=== PATIENT | male | born 1930 | race Caucasian/White ===

== ENCOUNTER 2018-05-03 21:31 | Emergency (ER) | payer OTHER ==
[2018-05-03 21:53] VITALS: PULSE 79; TEMP 98.5; BMI 31.8
--- NOTE | 2018-05-03 21:56 | PDOC ---
History of Present Illness - History of Present Illness Initial Comments: 05/03/18 21:58 HPI: The patient is a 87 year old male, with a significant past medical history of multiple prostate surgeries, who presents to the emergency department with, urinary retention. As per patient, he has not been able to micturate since this morning, prompting his visit to the ER [facility]. Patient endorses one year of intermittent hematuria. He was seen by his urologist 2 days ago where he had a bladder ultrasound and urine testing done. He denies any recent fevers, chills, headache or dizziness. He denies any recent nausea, vomit, diarrhea or constipation. He denies any recent chest pain or shortness of breath. PAST MEDICAL HISTORY: no significant history PAST SURGICAL HISTORY: no significant history FAMILY HISTORY: no pertinent history SOCIAL HISTORY: Pt lives with family and is employed. MEDICATIONS: reviewed ALLERGIES: As per nursing notes ROS: General: No fevers or chills, no weakness, no weight loss HEENT: No change in vision. No sore throat,. No ear pain CardioVascular: No chest pain or shortness of breath Respiratory:No cough, or wheezing. Gastrointestinal: no nausea, vomiting, diarrhea or constipation, No rectal bleeding +Genitourinary: Retention. Hematuria. No dysuria or frequency Musculoskeletal: No joint or muscle pain or swelling Neurologic: No headache, vertigo, dizziness or loss of consciousness Psychiatric: nor depression Skin: No rashes or easy bruising Endocrine: no increased thirst or abnormal weight change Allergic: no skin or latex allergy All other systems reviewed and normal Physical Exam: GENERAL: The patient is awake, alert, and fully oriented, in no acute distress. HEAD: Normal with no signs of trauma. EYES: Pupils equal, round and reactive to light, extraocular movements intact, sclera anicteric, conjunctiva clear. EXTREMITIES: Normal range of motion, no edema. BACK: No CVA tenderness. ABDOMINAL: No tenderness or distention. NEUROLOGICAL: Normal speech, normal gait. PSYCH: Normal mood, normal affect. SKIN: Warm, Dry, normal turgor, no rashes or lesions noted. <Naman Yanes - Last Filed: 05/03/18 21:58> - General History Source: Patient Exam Limitations: No Limitations - History of Present Illness Initial Comments: 05/03/18 21:55 A portion of this note was documented by scribe services under my direction. I have reviewed the details of the note, within reason, and agree with the documentation. The case summary and management plan written by me. Assessment and plan: This is an 87-year-old male who comes in complaining of unable to urinate since this morning. Almonte catheter was placed with grossly bloody urine however urine had no problems draining once Almonte was placed. Patient is on Plavix and said he has had some hematuria intermittently over the last year since he had some prostate gait scraping procedure done. Patient otherwise denied any complaints. Patient last saw his urologist 2 days ago where he has urine was checked and he was told it had some blood in it but otherwise no infection. 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) Cholecystectomy: No Lung Surgery: No Neurologic Surgery: No Orthopedic Surgery: Yes - Suicide/Smoking/Psychosocial Hx Smoking History: Never smoked Have you smoked in the past 12 months: No Hx Alcohol Use: No Drug/Substance Use Hx: No Substance Use Type: None Hx Substance Use Treatment: No <Dina Brantley I - Last Filed: 05/03/18 22:41> - Past Medical History Allergies/Adverse Reactions: Allergies Allergy/AdvReac Type Severity Reaction Status Date / Time No Known Allergies Allergy Verified 03/11/13 14:22 Home Medications: Ambulatory Orders Clopidogrel Bisulfate [Plavix] 75 mg PO DAILY 03/11/13 Ranolazine [Ranexa] 500 mg PO DAILY 03/11/13 Rosuvastatin Calcium [Crestor] 5 mg PO DAILY 03/11/13 Ciprofloxacin HCl [Cipro] 500 mg PO BID #14 tablet 05/03/18 Metoprolol Succinate 25 mg PO DAILY 05/03/18 *Physical Exam - Vital Signs Last Vital Signs Temp Pulse Resp BP Pulse Ox 98.5 F 79 20 150/78 99 05/03/18 21:38 05/03/18 21:38 05/03/18 21:38 05/03/18 21:56 05/03/18 21:38 <Naman Yanes - Last Filed: 05/03/18 21:58> - Vital Signs Last Vital Signs Temp Pulse Resp BP Pulse Ox 98.5 F 79 20 225/138 H 99 05/03/18 21:38 05/03/18 21:38 05/03/18 21:38 05/03/18 21:38 05/03/18 21:38 <Dina Brantley I - Last Filed: 05/03/18 22:41> *DC/Admit/Observation/Transfer - Attestations Scribe Attestion: 05/03/18 21:59 Documentation prepared by Naman Yanes, acting as internist medical doctor md for Dina Brantley MD. <Naman Yanes - Last Filed: 05/03/18 21:58> - Discharge Dispostion Decision to Admit order: No <Dina Brantley I - Last Filed: 05/03/18 22:41> Diagnosis at time of Disposition: Hematuria, gross, Urinary retention - Discharge Dispostion Disposition: HOME Condition at time of disposition: Stable - Referrals Referrals: Humble Peres MD [Primary Care Provider] - - Patient Instructions Additional Instructions: The urine was positive for an infection so I'm starting him on an antibiotic. Take the antibiotic twice a day for 7 days. When you see your urologist that him know you were started on an antibiotic. Wear the leg bag and leave the catheter in until you see your urologist. Empty the leg bag as needed, Return to the emergency department immediately with ANY new, persistent or worsening symptoms. Continue any medications as previously prescribed by your physician. You should follow up with your primary doctor as soon as possible regarding today's emergency department visit. . Please make sure your doctor reviews the results of your emergency evaluation. Thank you for coming to the Emergency Department today for your care. It was a pleasure to see you today. Please note that your evaluation is INCOMPLETE until you follow-up with your doctor. - Post Discharge Activity
[2018-05-03 21:57] VITALS: BP 150/78
[2018-05-03 22:35] LABS: URINE BILIRUBIN NEGATIVE (NEGATIVE); URINE GLUCOSE (UA) NEGATIVE (NEGATIVE); URINE KETONE NEGATIVE (NEGATIVE)
[2018-05-03 22:36] LABS: URINE LEUK ESTERASE 2+ (NEGATIVE); URINE NITRITE POSITIVE (NEGATIVE); URINE PROTEIN 2+ (NEGATIVE); URINE UROBILINOGEN 4 (0.2-1.0)
[2018-05-03 22:39] LABS: AMORP URATES 1+ /hpf (NONE SEEN); EPI CELLS FEW /HPF; URINE RBC >100 /hpf (0-3)
[2018-05-03] MEDS ORDERED: CIPROFLOXACIN 500 MG TABLET (RESTRICTED TO ID) PO ONE (22:39)
[2018-05-03 22:40] LABS: URINE BACTERIA 1+ /hpf (NEGATIVE)
[2018-05-03] MEDS ORDERED: CIPROFLOXACIN 250 MG TABLET (RESTRICTED TO ID) PO ONE (22:42)
[2018-05-06 09:35] LABS: URINE APPEARANCE Not; URINE COLOR Not
== END 2018-05-03 22:47 | disposition home or self-care (01) ==
LOC: FER 21:31
DX: R31.9 Hematuria, unspecified (principal); R33.9 Retention of urine, unspecified; I10 Essential (primary) hypertension; E78.00 Pure hypercholesterolemia, unspecified; Z85.46 Personal history of malignant neoplasm of prostate
CPT/HCPCS: 81003; 81015; 87086; 87186; 99283-25

== ENCOUNTER 2020-03-30 05:14 | Emergency (ER) | payer OTHER ==
--- NOTE | 2020-03-30 05:19 | PDOC ---
History of Present Illness - General Chief Complaint: Urinary Problem Stated Complaint: " I CANT PEE" Time Seen by Provider: 03/30/20 05:18 History Source: Patient Exam Limitations: No Limitations - History of Present Illness Initial Comments: 03/30/20 05:20 This is an 89-year-old male who comes in complaining that he cannot pee. Said that at about midnight he started developing painful urination and was able to pee at 3 AM but had a Cipro leftover from a earlier urinary tract infection so took a Cipro. Patient denies any fever, chills, nausea vomiting or diarrhea. Patient has history significant for prostate cancer and has a seed implants. Allergies: as per nursing notes Past Medical History: none Social history: Lives with family. No smoking. No alcohol. No illicit drugs. Surgical history: None General: No fevers or chills, no weakness, no weight loss HEENT: No change in vision. No sore throat,. No ear pain CardioVascular: no chest discomfort. No shortness of breath Respiratory:No cough, or wheezing. Gastrointestinal: no nausea, vomiting, diarrhea or constipation, No rectal bleeding Genitourinary: No dysuria, hematuria, or frequency Musculoskeletal: No joint or muscle pain or swelling Neurologic: No headache, vertigo, dizziness or loss of consciousness Psychiatric: nor depression Skin: No rashes or easy bruising Endocrine: no increased thirst or abnormal weight change Allergic: no skin or latex allergy All other systems reviewed and normal Exam: General: Well-nourished well-developed individual, no acute distress HEENT: Throat: Normal, tonsils normal, no erythema or exudate Neck: Supple, no meningeal signs, no lymphadenopathy Eyes::Pupils equal reactive and round, extraocular motion intact Abdomen: Soft, nondistended, normal bowel sounds, there is no tenderness on palpation diffusely Extremities: Warm, dry, no cyanosis, clubbing, or edema Skin: No rashes Neuro: Alert and oriented x3, CN II - XII intact, nonfocal exam with normal strength, normal sensation, normal reflexes, normal gait, Psych: Normal mood and affect Plan: This is an 89-year-old male who comes in complaining that he cannot pee. Bladder scan was done that only shows 250 cc ER. Patient was straight cathed and a urine was sent for urinalysis and culture. 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) Cardiac Disorders: No CVA: No COPD: No CHF: No Dementia: No Diabetes: No GI Disorders: No Disorders: No HTN: Yes Hypercholesterolemia: Yes Liver Disease: No Seizures: No Thyroid Disease: No - Surgical History Abdominal Surgery: No Appendectomy: Yes Cardiac Surgery: Yes (QUADRUPALE BYPASS, 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) Cholecystectomy: No Lung Surgery: No Neurologic Surgery: No Orthopedic Surgery: Yes - Psycho-Social/Smoking History Smoking History: Never smoked Have you smoked in the past 12 months: No Discharge - Discharge Information Problems reviewed: Yes Clinical Impression/Diagnosis: Dysuria UTI (urinary tract infection) Qualifiers: Urinary tract infection type: acute cystitis Hematuria presence: with hematuria Qualified Code(s): N30.01 - Acute cystitis with hematuria Condition: Stable Disposition: HOME - Additional Discharge Information Prescriptions: Sulfamethoxazole/Trimethoprim [Bactrim Ds Tablet] 1 each PO BID #14 tablet - Follow up/Referral Referrals: Abiel Tran MD [Staff Physician] - Santi Reaves MD., MD [Staff Physician] - Amarjit Huerta MD [Staff Physician] - Humble Peres MD [Primary Care Provider] - - Patient Discharge Instructions Patient Printed Discharge Instructions: DI for Urinary Tract Infection (UTI), DI for Dysuria -- Adult Additional Instructions: 1) Please follow-up with your primary care doctor in the next 1-2 days. Please call tomorrow for for any urgent issues. follow up with urologist, referrals given to follow up on your urinary symptoms. 2) You were given a copy of the tests performed today. Please bring the results with you and review them with your primary care doctor. You have a urinary tract infection that will be treated with oral antibiotics x 1 week follow up on urine culture. 3) If you have any worsening of symptoms or any other concerns please return to the ED immediately. Return if worsening symptoms including fevers, headache, vomiting, visual or hearing disturbances, abdominal pain, chest pain, shortness of breath, syncope, dehydration, inability to take things by mouth/vomiting, altered mental status, bloody urine or bowel movements or worsening concerning symptoms. 4) Please continue taking your home medications as directed. take bactrim twice a day x 1 week, this will treat the infection. take with food. side effects may include dizziness, nausea, vomiting, diarrhea and abdominal pain. Stay well hydrated and rest adequately. Make an appointment. If you cannot follow-up with your primary care doctor please return to the ED - Post Discharge Activity
--- OUTSIDE RECORDS SUMMARY | 2020-03-30 05:20 | XMS ---
:1930 Author Organization [facility] Support Name Relationship Address Phone RE Unavailable Unavailable Unavailable LUI [address] [place] [address] [address] SON [address] [place] [address] Re-disclosure Warning The records that you are about to access may contain information from federally- assisted alcohol or drug abuse programs. If such information is present, then the following federally mandated warning applies: This information has been disclosed to you from records protected by federal confidentiality rules (42 CFR part 2). The federal rules prohibit you from making any further disclosure of this information unless further disclosure is expressly permitted by the written consent of the person to whom it pertains or as otherwise permitted by 42 CFR part 2. A general authorization for the release of medical or other information is NOT sufficient for this purpose. The Federal rules restrict any use of the information to criminally investigate or prosecute any alcohol or drug abuse patient.The records that you are about to access may contain highly sensitive health information, the redisclosure of which is protected by Article 27-F of the [facility] Public Health law. If you continue you may haveaccess to information: Regarding HIV / AIDS; Provided by facilities licensed or operated by the [facility] Office of Mental Health; or Provided by the [facility] Office for People With Developmental Disabilities. If such information is present, then the following [facility] mandated warning applies: This information has been disclosed to you from confidential records which are protected by state law. State law prohibits you from making any further disclosure of this information without the specific written consent of the person to whom it pertains, or as otherwise permitted by law. Any unauthorized further disclosure in violation of state law may result in a fine or nursing home sentence or both. A general authorization for the release of medical or other information is NOT sufficient authorization for further disclosure. Insurance Providers Payer name Policy type Policy ID Covered Covered republican's Policy P zane / Coverage republican ID relationship to [place] [employer] type [place] [employer] [id number] SP [id number] MEDICARE Results ID Date Data Source [id number] 10/29/2019 12:00:00 AM EDT [facility] Name Value Range Interpretation Code Description Data Caterina rce(s) Supporting Document(s ) 2019-nCoV [facility] RNA XXX ERIKA+probe- Imp [facility] and reported by [employer]. ID Date Data Source [id number] 12/17/2017 11:34:[address] [facility] [address] Name Value Range Interpretation Code Description Data Caterina rce(s) Supporting Document(s ) UNK <item><content [facility] styleCode="Bold"> Medical [facility] er Culture Report </content>
<t able><tbody><tr>< td>Specimen Number:</td><td>[id number]</td></tr ><tr><td>Sample Collection Date/Time: </td><td> 8 11:34 AM</td></tr><tr>< td>Specimen Source:</td><td>U RINE</td></tr><tr ><td>Urine Culture:</td><td> Collection Plate Date: 12/17/2017 15:03 </td></tr><tr><td >Culture Status:</td><td>F inal </td></tr><tr><td >Culture Report:</td><td>C ulture in progress </td></tr><tr><td >Emeigh Count Urine:</td><td>60 ,000 CFU/ML </td></tr><tr><td >Preliminary 1:</td><td>GRAM NEGATIVE BACILLI </td></tr><tr><td >Organism 1:</td><td>ESCHER ICHIA COLI </td></tr></tbody ></table>
<ta ble border="2"><tbody ><tr><td></td><td >1</td></tr><tr>< td>Comment</td><t d></td></tr><tr>< td>Result Value</td><td>ESC HERICHIA COLI </td></tr><tr><td >Result Status</td><td>Fi nal Result</td></tr>< tr><td>AMPICILLIN </td><td>>16 R</td></tr><tr><t d>AMPICILLIN SULBACTAM</td><td >>16/8 R</td></tr><tr><t d>AZTREONAM</td>< td>>16 ESBL</td></tr><tr ><td>CEFEPIME</td ><td>>16 R</td></tr><tr><t d>CEFOTAXIME</td> <td>>32 ESBL</td></tr><tr ><td>CEFOTETAN</t d><td><= 16 S</td></tr><tr><t d>CEFTAZIDIME</td ><td>>16 ESBL</td></tr><tr ><td>CEFTRIAXONE< /td><td>>32 ESBL</td></tr><tr ><td>CEFUROXIME</ td><td>>16 R</td></tr><tr><t d>CIPROFLOXACIN</ td><td>> 2 R</td></tr><tr><t d>ERTAPENEM</td>< td><=1 S</td></tr><tr><t d>GENTAMICIN</td> <td><= 4 S</td></tr><tr><t d>IMIPENEM</td><t d><= 1 S</td></tr><tr><t d>LEVOFLOXACIN</t d><td>> 4 R</td></tr><tr><t d>MEROPENEM</td>< td><= 1 S</td></tr><tr><t d>NITROFURANTOIN< /td><td><= 32 S</td></tr><tr><t d>PIPERACILLIN/TA ZOBACTAM</td><td> <= 16 S</td></tr><tr><t d>TETRACYCLINE</t d><td>> 8 R</td></tr><tr><t d>TIGECYCLINE</td ><td><= 2 S</td></tr><tr><t d>TRIMETHOPRIM/ARAYA LFAMETHOXAZOLE</t d><td>>2/38 R</td></tr></tbod y></table></item> UNK <item><content [facility] styleCode="Bold"> Medical [facility] er Culture Status </content>
<t able><tbody><tr>< td>Specimen Number:</td><td>[id number]</td></tr ><tr><td>Sample Collection Date/Time: </td><td> 8 11:34 AM</td></tr><tr>< td>Specimen Source:</td><td>U RINE</td></tr><tr ><td>Emeigh Count Urine:</td><td>60 ,000 CFU/ML </td></tr><tr><td >Preliminary 1:</td><td>GRAM NEGATIVE BACILLI </td></tr><tr><td >Culture Status:</td><td>F inal </td></tr><tr><td >Culture Report:</td><td>C ulture in progress </td></tr><tr><td >Urine Culture:</td><td> Collection Plate Date: 12/17/2017 15:03 </td></tr><tr><td >Organism 1:</td><td>ESCHER ICHIA COLI </td></tr></tbody ></table>
<ta ble border="2"><tbody ><tr><td></td><td >1</td></tr><tr>< td>Comment</td><t d></td></tr><tr>< td>Result Value</td><td>ESC HERICHIA COLI </td></tr><tr><td >Result Status</td><td>Fi nal Result</td></tr>< tr><td>AMPICILLIN </td><td>>16 R</td></tr><tr><t d>AMPICILLIN SULBACTAM</td><td >>16/8 R</td></tr><tr><t d>AZTREONAM</td>< td>>16 ESBL</td></tr><tr ><td>CEFEPIME</td ><td>>16 R</td></tr><tr><t d>CEFOTAXIME</td> <td>>32 ESBL</td></tr><tr ><td>CEFOTETAN</t d><td><= 16 S</td></tr><tr><t d>CEFTAZIDIME</td ><td>>16 ESBL</td></tr><tr ><td>CEFTRIAXONE< /td><td>>32 ESBL</td></tr><tr ><td>CEFUROXIME</ td><td>>16 R</td></tr><tr><t d>CIPROFLOXACIN</ td><td>> 2 R</td></tr><tr><t d>ERTAPENEM</td>< td><=1 S</td></tr><tr><t d>GENTAMICIN</td> <td><= 4 S</td></tr><tr><t d>IMIPENEM</td><t d><= 1 S</td></tr><tr><t d>LEVOFLOXACIN</t d><td>> 4 R</td></tr><tr><t d>MEROPENEM</td>< td><= 1 S</td></tr><tr><t d>NITROFURANTOIN< /td><td><= 32 S</td></tr><tr><t d>PIPERACILLIN/TA ZOBACTAM</td><td> <= 16 S</td></tr><tr><t d>TETRACYCLINE</t d><td>> 8 R</td></tr><tr><t d>TIGECYCLINE</td ><td><= 2 S</td></tr><tr><t d>TRIMETHOPRIM/ARAYA LFAMETHOXAZOLE</t d><td>>2/38 R</td></tr></tbod y></table></item> Procedure Social History Code Duration Value Status Description Data Source(s ) Smoking Unknown if ever completed Unknown if ever Shahbaz Perez smoked [facility]
[2020-03-30 05:23] VITALS: BMI 27.7
[2020-03-30 05:51] VITALS: PULSE 54; TEMP 98.8
--- NOTE | 2020-03-30 07:23 | PDOC ---
*Physical Exam - Vital Signs Last Vital Signs Temp Pulse Resp BP Pulse Ox 98.8 F 54 L 18 190/71 H 95 03/30/20 05:49 03/30/20 05:49 03/30/20 05:49 03/30/20 05:49 03/30/20 05:49 Medical Decision Making - Medical Decision Making 03/30/20 07:21 Vital Signs Temp Pulse Resp BP Pulse Ox 98.8 F 54 L 18 190/71 H 95 03/30/20 05:49 03/30/20 05:49 03/30/20 05:49 03/30/20 05:49 03/30/20 05:49 pt signed out from Dr Jacob at 7am, pending UA in summary, 89-year-old male who comes in complaining that he cannot pee. Said that at about midnight he started developing painful urination and was able to pee at 3 AM but had a Cipro leftover from a earlier urinary tract infection so took a Cipro. Patient denies any fever, chills, nausea vomiting or diarrhea. Patient has history significant for prostate cancer and has a seed implants. vs with HTN, no fever, nontoxic, no systemic findings no tachy, no respiratory distress usually self catheterizes, PVR ~200cc during visit UA_with rbcs and wbcs, shmuel with infection. will treat with bactrim x 1 week course. follow up culture urology follow up given Pt to be discharged in stable condition. Patient and family made aware of clinical impression, treatment recommendations and disposition plan, return precautions discussed (including but not limited to new or persistent/worsening symptoms, pain, fevers, or signs of infection, chest pain, respiratory distress, inability to tolerate oral intake, dehydration, syncope, or neurologic changes). Follow up with PMD and/or urology specialist as recommended, follow up information provided, take medications as instructed for duration of time. continue with supportive care, avoid triggers and precipitants. All questions answered to patient's satisfaction and expressed understanding and comfort with this. At the time of discharge, the patient is alert, clinically improved, tolerating po and verbalizes understanding of instructions, satisfied with the care received and felt comfortable with the plan. Patient does not suffer from an acute life-threatening medical condition at this time and is safe for outpatient follow-up. 03/30/20 07:22 03/30/20 08:52 03/30/20 09:07 Discharge - Discharge Information Problems reviewed: Yes Clinical Impression/Diagnosis: Dysuria UTI (urinary tract infection) Qualifiers: Urinary tract infection type: acute cystitis Hematuria presence: with hematuria Qualified Code(s): N30.01 - Acute cystitis with hematuria Condition: Stable Disposition: HOME - Admission No - Additional Discharge Information Prescriptions: Sulfamethoxazole/Trimethoprim [Bactrim Ds Tablet] 1 each PO BID #14 tablet - Follow up/Referral Referrals: Humble Peres MD [Primary Care Provider] - Santi Reaves MD., MD [Staff Physician] - Abiel Tran MD [Staff Physician] - Amarjit Huerta MD [Staff Physician] - - Patient Discharge Instructions Patient Printed Discharge Instructions: DI for Dysuria -- Adult, DI for Urinary Tract Infection (UTI) Additional Instructions: 1) Please follow-up with your primary care doctor in the next 1-2 days. Please call tomorrow for for any urgent issues. follow up with urologist, referrals given to follow up on your urinary symptoms. 2) You were given a copy of the tests performed today. Please bring the results with you and review them with your primary care doctor. You have a urinary tract infection that will be treated with oral antibiotics x 1 week follow up on urine culture. 3) If you have any worsening of symptoms or any other concerns please return to the ED immediately. Return if worsening symptoms including fevers, headache, vomiting, visual or hearing disturbances, abdominal pain, chest pain, shortness of breath, syncope, dehydration, inability to take things by mouth/vomiting, altered mental status, bloody urine or bowel movements or worsening concerning symptoms. 4) Please continue taking your home medications as directed. take bactrim twice a day x 1 week, this will treat the infection. take with food. side effects may include dizziness, nausea, vomiting, diarrhea and abdominal pain. Stay well hydrated and rest adequately. Make an appointment. If you cannot follow-up with your primary care doctor please return to the ED - Post Discharge Activity
[2020-03-30 09:05] LABS: EPI CELLS 11 /uL (0-25.1); HYALINE CASTS 0 /uL (0-3.1); URINE APPEARANCE CLEAR; URINE BACTERIA 204 /uL (0-1359); URINE BILIRUBIN NEGATIVE (NEGATIVE); URINE COLOR YELLOW; URINE GLUCOSE (UA) NEGATIVE (NEGATIVE); URINE KETONE NEGATIVE (NEGATIVE); URINE LEUK ESTERASE 1+ (NEGATIVE); URINE NITRITE NEGATIVE (NEGATIVE); URINE PROTEIN NEGATIVE (NEGATIVE); URINE RBC 37 /uL (0-23.9); URINE UROBILINOGEN 0.2 mg/dL (0.2-1.0); URINE WBC 34 /uL (0-25.8)
[2020-03-30 09:28] VITALS: BP 156/77
== END 2020-03-30 09:30 | disposition home or self-care (01) ==
LOC: FER 05:14
DX: R30.0 Dysuria (principal); N30.01 Acute cystitis with hematuria
CPT/HCPCS: 81003; 87086; 87186; 99283-25

== ENCOUNTER 2020-09-24 02:49 | Emergency (ER) | payer OTHER ==
[2020-09-24 02:59] VITALS: BP 138/64; PULSE 63; TEMP 97.6; BMI 33.7
[2020-09-24] MEDS ORDERED: ACETAMINOPHEN 325 MG TABLET (FP) ONE (03:32)
[2020-09-24 04:20] LABS: EPI CELLS 2 /uL (0-25.1); HYALINE CASTS 1 /uL (0-3.1); URINE APPEARANCE CLEAR; URINE BACTERIA >9,000 /uL (0-1359); URINE BILIRUBIN NEGATIVE (NEGATIVE); URINE COLOR YELLOW; URINE GLUCOSE (UA) NEGATIVE (NEGATIVE); URINE KETONE NEGATIVE (NEGATIVE); URINE LEUK ESTERASE 3+ (NEGATIVE); URINE NITRITE NEGATIVE (NEGATIVE); URINE PROTEIN TRACE (NEGATIVE); URINE RBC 70 /uL (0-23.9); URINE UROBILINOGEN 0.2 mg/dL (0.2-1.0); URINE WBC 221 /uL (0-25.8)
[2020-09-24] MEDS ORDERED: CIPROFLOXACIN 500 MG TABLET (RESTRICTED TO ID) PO ONE (04:35)
[2020-09-24] MEDS ORDERED: ACETAMINOPHEN 325 MG TABLET (FP) PO ONE (04:38)
[2020-09-24] MEDS ORDERED: CIPROFLOXACIN 250 MG TABLET (RESTRICTED TO ID) PO ONE (04:40)
== END 2020-09-24 06:44 | disposition home or self-care (01) ==
LOC: FER 02:49
DX: N30.90 Cystitis, unspecified without hematuria (principal)
CPT/HCPCS: 81003; 87086; 87186; 99283-25

== ENCOUNTER 2021-03-28 13:30 | Inpatient (IN) | payer OTHER ==
[2021-03-28] MEDS ORDERED: ACETAMINOPHEN 1000 MG/100 ML VIAL IVPB ONE (15:11)
[2021-03-28] MEDS ORDERED: morphine CARPU-JECT 8 MG/1 ML DISP.SYRIN IVPUSH ONE (16:02)
[2021-03-28] MEDS ORDERED: morphine SULFATE 4 MG/ML VIAL ONE (16:14)
[2021-03-28 16:50] LABS: BASO % 0.3 % (0-2.0); EOS % 0.8 % (0-4.5); HEMATOCRIT 43.9 % (35.4-49); HEMOGLOBIN 14.8 GM/dL (11.7-16.9); LYMPH % 8.6 % (8-40); MCHC 33.8 g/dl (32.0-35.9); MEAN CELL VOLUME 91.8 fl (80-96); MEAN PLT VOLUME 8.7 fl (7.5-11.1); NEUT % 84.3 % (42.8-82.8); PLATELET COUNT 218 10^3/uL (134-434); RBC 4.78 M/mm3 (4.00-5.60); WHITE BLOOD COUNT 8.7 K/mm3 (4.0-10.0)
[2021-03-28 16:59] LABS: INR 1.08 (0.83-1.09); PROTHROMBIN TIME (PATIENT) 13.3 SEC (9.7-13.0)
[2021-03-28 17:01] LABS: ACTIVATED PTT 28.9 SECONDS (25.2-36.5)
[2021-03-28 17:14] LABS: ALBUMIN 3.9 g/dl (3.4-5.0); BLOOD UREA NITROGEN 35.1 mg/dL (7-18); CALCIUM 9.1 mg/dL (8.5-10.1)
[2021-03-28 17:17] LABS: CREATININE 2.7 mg/dL (0.55-1.3)
[2021-03-28 17:19] LABS: BILIRUBIN,TOTAL 0.6 mg/dL (0.2-1); TOT PROT 6.9 g/dl (6.4-8.2)
[2021-03-28] MEDS ORDERED: LIDOCAINE HCL 2% JELLY 10 ML CARTRIDGE ONE (18:23)
[2021-03-28] MEDS ORDERED: SODIUM ZIRCONIUM CYCLOSILICATE (LOKELMA) 5 GM PACKET PO ONE (20:23)
[2021-03-28] MEDS ORDERED: morphine SULFATE 4 MG/ML VIAL IVPUSH PRN (22:45)
[2021-03-28] MEDS ORDERED: DEXTROSE 5%-0.45% SALINE 1,000 ML IV SCH (22:45)
[2021-03-29 03:33] LABS: BASO % 0.2 % (0-2.0); HEMATOCRIT 39.7 % (35.4-49); HEMOGLOBIN 13.1 GM/dL (11.7-16.9); LYMPH % 6.8 % (8-40); MCH 29.9 pg (25.7-33.7); MEAN CELL VOLUME 90.5 fl (80-96); MEAN PLT VOLUME 8.5 fl (7.5-11.1); MONO % 3.7 % (3.8-10.2); NEUT % 89.3 % (42.8-82.8); PLATELET COUNT 225 10^3/uL (134-434); RBC 4.39 M/mm3 (4.00-5.60); RDW 17.1 % (11.9-15.9); WHITE BLOOD COUNT 18.7 K/mm3 (4.0-10.0)
[2021-03-29] MEDS ORDERED: HYDROmorphone HCl 2 MG/ML VIAL IVPUSH PRN (03:43)
[2021-03-29] MEDS ORDERED: HYDROmorphone HCl 2 MG/ML VIAL IVPB PRN (04:11)
[2021-03-29 05:17] VITALS: BMI 29.6
[2021-03-29 09:10] LABS: BASO % 0.1 % (0-2.0); HEMATOCRIT 37.2 % (35.4-49); HEMOGLOBIN 12.4 GM/dL (11.7-16.9); LYMPH % 5.8 % (8-40); MCH 30.6 pg (25.7-33.7); MCHC 33.2 g/dl (32.0-35.9); MEAN CELL VOLUME 92.1 fl (80-96); MONO % 7.3 % (3.8-10.2); NEUT % 86.8 % (42.8-82.8); PLATELET COUNT 200 10^3/uL (134-434); RBC 4.04 M/mm3 (4.00-5.60); RDW 17.1 % (11.9-15.9); WHITE BLOOD COUNT 15.3 K/mm3 (4.0-10.0)
[2021-03-29] MEDS ORDERED: metoPROLOL SUCCINATE 25 MG TAB.SR.24H (FP) PO SCH (10:00)
[2021-03-29] MEDS ORDERED: FLU VACC QS2021-22(6MOS UP)/PF 60 MCG/0.5 ML SYRINGE IM ONE (10:00)
[2021-03-29] MEDS ORDERED: amLODIPine BESYLATE 10 MG TABLET (FP) PO SCH (10:00)
[2021-03-29] MEDS ORDERED: SUCCINYLCHOLINE CHLORIDE 200 MG/10 ML SYRINGE ONE (15:04)
[2021-03-29] MEDS ORDERED: MIDAZOLAM HCL 2 MG/2 ML SINGLE DOSE VIAL ONE (15:04)
[2021-03-29] MEDS ORDERED: PROPOFOL 20 ML ONE ×2 (15:04)
[2021-03-29] MEDS ORDERED: ceFAZolin SODIUM 1 GM VIAL IVPB ONE (15:40)
[2021-03-29] MEDS ORDERED: ONDANSETRON 4 MG/2 ML VIAL IVPUSH PRN (16:49)
[2021-03-29] MEDS ORDERED: LACTATED RINGERS SOLUTION 1,000 ML IV SCH (17:00)
[2021-03-29] MEDS: DEXTROSE 5%-0.45% SALINE 1,000 ML IV SCH (17:38)
[2021-03-29] MEDS ORDERED: ATORVASTATIN CA 20 MG TABLET (FP) PO SCH (22:00)
[2021-03-29] MEDS: ATORVASTATIN CA 20 MG TABLET (FP) PO SCH (22:43)
[2021-03-30] MEDS ORDERED: DEXTROSE 5%-WATER - 50 ML IVPB ONE ×2 (00:17→09:37)
[2021-03-30] MEDS ORDERED: cefTRIAXone SODIUM 1 GM VIAL ONE ×2 (00:17→09:37)
[2021-03-30] MEDS: HYDROmorphone HCl 2 MG/ML VIAL IVPB PRN ×3 (00:49→18:48)
[2021-03-30] MEDS: CEFTRIAXONE 1 GM in DEXTROSE 5%-WATER - 50 ML IVPB SCH ×2 (00:49→09:41)
[2021-03-30] MEDS: DEXTROSE 5%-0.45% SALINE 1,000 ML IV SCH (06:13)
[2021-03-30 08:17] LABS: BLOOD UREA NITROGEN 45.2 mg/dL (7-18)
[2021-03-30 08:19] LABS: CREATININE 2.7 mg/dL (0.55-1.3)
[2021-03-30 08:20] LABS: BILIRUBIN,TOTAL 1.1 mg/dL (0.2-1)
[2021-03-30 08:38] LABS: ALBUMIN 2.5 g/dl (3.4-5.0); CALCIUM 7.4 mg/dL (8.5-10.1)
[2021-03-30 09:02] LABS: BASO % 0.2 % (0-2.0); EOS % 0.5 % (0-4.5); HEMATOCRIT 26.4 % (35.4-49); HEMOGLOBIN 8.9 GM/dL (11.7-16.9); LYMPH % 7.7 % (8-40); MCHC 33.6 g/dl (32.0-35.9); MEAN CELL VOLUME 92.3 fl (80-96); MEAN PLT VOLUME 9.2 fl (7.5-11.1); MONO % 9.4 % (3.8-10.2); NEUT % 82.2 % (42.8-82.8); PLATELET COUNT 152 10^3/uL (134-434); RBC 2.86 M/mm3 (4.00-5.60); RDW 17.3 % (11.9-15.9); WHITE BLOOD COUNT 15.6 K/mm3 (4.0-10.0)
[2021-03-30] MEDS: amLODIPine BESYLATE 10 MG TABLET (FP) PO SCH (09:41)
[2021-03-30] MEDS: metoPROLOL SUCCINATE 25 MG TAB.SR.24H (FP) PO SCH (09:41)
[2021-03-30] MEDS ORDERED: SODIUM CHLORIDE 0.45% 1,000 ML IV SCH (15:45)
[2021-03-30] MEDS: ATORVASTATIN CA 20 MG TABLET (FP) PO SCH (21:06)
[2021-03-31] MEDS: HYDROmorphone HCl 2 MG/ML VIAL IVPB PRN (01:19)
[2021-03-31 07:30] LABS: ALBUMIN 2.4 g/dl (3.4-5.0); BLOOD UREA NITROGEN 36.5 mg/dL (7-18); CALCIUM 7.7 mg/dL (8.5-10.1)
[2021-03-31 07:33] LABS: CREATININE 2.4 mg/dL (0.55-1.3)
[2021-03-31 07:34] LABS: BILIRUBIN,TOTAL 0.5 mg/dL (0.2-1); TOT PROT 5.1 g/dl (6.4-8.2)
[2021-03-31] MEDS ORDERED: cefTRIAXone SODIUM 1 GM VIAL ONE (09:56)
[2021-03-31] MEDS ORDERED: DEXTROSE 5%-WATER - 50 ML IVPB ONE (09:57)
[2021-03-31] MEDS: metoPROLOL SUCCINATE 25 MG TAB.SR.24H (FP) PO SCH (10:07)
[2021-03-31] MEDS: amLODIPine BESYLATE 10 MG TABLET (FP) PO SCH (10:07)
[2021-03-31] MEDS: CEFTRIAXONE 1 GM in DEXTROSE 5%-WATER - 50 ML IVPB SCH (10:07)
[2021-03-31] MEDS ORDERED: PT OWN MED DRAWER 7, Y5N ONE (13:18)
[2021-03-31] MEDS: ACETAMINOPHEN 325 MG TABLET (FP) PO PRN ×2 (14:45→20:09)
[2021-03-31 19:54] LABS: URIC ACID 7.5 mg/dL (2.6-7.2)
[2021-03-31] MEDS: DOCUSATE SODIUM 100 MG CAPSULE (FP) PO SCH (21:18)
[2021-03-31] MEDS: morphine SULFATE 4 MG/ML VIAL IVPUSH PRN (21:18)
[2021-03-31] MEDS: ATORVASTATIN CA 20 MG TABLET (FP) PO SCH (21:18)
[2021-04-01] MEDS: morphine SULFATE 4 MG/ML VIAL IVPUSH PRN ×2 (08:37→21:02)
[2021-04-01] MEDS ORDERED: DEXTROSE 5%-WATER - 50 ML IVPB ONE (09:35)
[2021-04-01] MEDS ORDERED: cefTRIAXone SODIUM 1 GM VIAL ONE (09:35)
[2021-04-01] MEDS: CEFTRIAXONE 1 GM in DEXTROSE 5%-WATER - 50 ML IVPB SCH (09:38)
[2021-04-01] MEDS: amLODIPine BESYLATE 10 MG TABLET (FP) PO SCH (09:38)
[2021-04-01] MEDS: POLYETHYLENE GLYCOL (HEALTHYLAX) 3350 17 GM PACKET PO SCH (09:38)
[2021-04-01] MEDS: metoPROLOL SUCCINATE 25 MG TAB.SR.24H (FP) PO SCH (09:38)
[2021-04-01 10:38] LABS: BASO % 0.3 % (0-2.0); EOS % 3.3 % (0-4.5); HEMATOCRIT 25.1 % (35.4-49); HEMOGLOBIN 8.5 GM/dL (11.7-16.9); LYMPH % 11.9 % (8-40); MCH 31.3 pg (25.7-33.7); MCHC 33.7 g/dl (32.0-35.9); MEAN CELL VOLUME 92.9 fl (80-96); MEAN PLT VOLUME 9.6 fl (7.5-11.1); MONO % 8.9 % (3.8-10.2); NEUT % 75.6 % (42.8-82.8); PLATELET COUNT 168 10^3/uL (134-434); RDW 16.9 % (11.9-15.9); WHITE BLOOD COUNT 8.2 K/mm3 (4.0-10.0)
[2021-04-01 10:52] LABS: CALCIUM 7.6 mg/dL (8.5-10.1)
[2021-04-01 10:53] LABS: ALBUMIN 2.3 g/dl (3.4-5.0); BLOOD UREA NITROGEN 32.2 mg/dL (7-18)
[2021-04-01 10:56] LABS: CREATININE 2.2 mg/dL (0.55-1.3)
[2021-04-01 10:58] LABS: BILIRUBIN,TOTAL 0.4 mg/dL (0.2-1); TOT PROT 5.3 g/dl (6.4-8.2)
[2021-04-01] MEDS ORDERED: DEXTROSE 5%-WATER 100 ML IVPB ONE (12:42)
[2021-04-01] MEDS ORDERED: MEROPENEM 1 GM VIAL (RESTRICTED TO ID) IVPB ONE (12:42)
[2021-04-01] MEDS: ACETAMINOPHEN 325 MG TABLET (FP) PO PRN (13:05)
[2021-04-01] MEDS: MEROPENEM 1 GM in DEXTROSE 5%-WATER 100 ML IVPB SCH (13:05)
[2021-04-01] MEDS: ATORVASTATIN CA 20 MG TABLET (FP) PO SCH (21:02)
[2021-04-01] MEDS: DOCUSATE SODIUM 100 MG CAPSULE (FP) PO SCH (21:02)
[2021-04-02] MEDS: MEROPENEM 1 GM in DEXTROSE 5%-WATER 100 ML IVPB SCH ×2 (01:00→13:10)
[2021-04-02] MEDS ORDERED: DEXTROSE 5%-WATER 100 ML IVPB ONE ×2 (01:42→13:07)
[2021-04-02] MEDS ORDERED: MEROPENEM 1 GM VIAL (RESTRICTED TO ID) IVPB ONE ×2 (01:42→13:07)
[2021-04-02] MEDS: ACETAMINOPHEN 325 MG TABLET (FP) PO PRN ×2 (06:44→22:09)
[2021-04-02] MEDS: amLODIPine BESYLATE 10 MG TABLET (FP) PO SCH (09:17)
[2021-04-02] MEDS: morphine SULFATE 4 MG/ML VIAL IVPUSH PRN ×2 (09:17→15:18)
[2021-04-02] MEDS: POLYETHYLENE GLYCOL (HEALTHYLAX) 3350 17 GM PACKET PO SCH (09:17)
[2021-04-02] MEDS: metoPROLOL SUCCINATE 25 MG TAB.SR.24H (FP) PO SCH (09:17)
[2021-04-02 09:35] LABS: BASO % 0.3 % (0-2.0); EOS % 5.2 % (0-4.5); HEMATOCRIT 24.5 % (35.4-49); HEMOGLOBIN 8.3 GM/dL (11.7-16.9); LYMPH % 16.1 % (8-40); MCH 31.2 pg (25.7-33.7); MCHC 33.6 g/dl (32.0-35.9); MEAN CELL VOLUME 92.7 fl (80-96); MEAN PLT VOLUME 8.9 fl (7.5-11.1); MONO % 9.5 % (3.8-10.2); NEUT % 68.9 % (42.8-82.8); PLATELET COUNT 187 10^3/uL (134-434); RBC 2.65 M/mm3 (4.00-5.60); RDW 16.4 % (11.9-15.9); WHITE BLOOD COUNT 6.2 K/mm3 (4.0-10.0)
[2021-04-02 10:13] LABS: ALBUMIN 2.3 g/dl (3.4-5.0)
[2021-04-02 10:17] LABS: BILIRUBIN,TOTAL 0.3 mg/dL (0.2-1); CREATININE 2.2 mg/dL (0.55-1.3)
[2021-04-02 10:18] LABS: TOT PROT 5.4 g/dl (6.4-8.2)
[2021-04-02] MEDS: DOCUSATE SODIUM 100 MG CAPSULE (FP) PO SCH (22:09)
[2021-04-02] MEDS: ATORVASTATIN CA 20 MG TABLET (FP) PO SCH (22:09)
[2021-04-03] MEDS ORDERED: MEROPENEM 1 GM VIAL (RESTRICTED TO ID) IVPB ONE ×2 (01:05→12:22)
[2021-04-03] MEDS ORDERED: DEXTROSE 5%-WATER 100 ML IVPB ONE ×2 (01:06→12:22)
[2021-04-03] MEDS: MEROPENEM 1 GM in DEXTROSE 5%-WATER 100 ML IVPB SCH ×2 (01:37→12:27)
[2021-04-03] MEDS: ALBUTEROL SO4 2.5/IPRATROPIUM 0.5 INH SOL 3 ML VIAL.NEB. NEB PRN ×3 (01:55→19:49)
[2021-04-03 08:17] LABS: BASO % 0.3 % (0-2.0); EOS % 5.2 % (0-4.5); HEMATOCRIT 24.1 % (35.4-49); HEMOGLOBIN 8.2 GM/dL (11.7-16.9); LYMPH % 13.5 % (8-40); MCH 30.8 pg (25.7-33.7); MCHC 33.9 g/dl (32.0-35.9); MEAN PLT VOLUME 8.9 fl (7.5-11.1); MONO % 9.8 % (3.8-10.2); NEUT % 71.2 % (42.8-82.8); PLATELET COUNT 199 10^3/uL (134-434); RBC 2.65 M/mm3 (4.00-5.60); RDW 16.2 % (11.9-15.9); WHITE BLOOD COUNT 6.1 K/mm3 (4.0-10.0)
[2021-04-03 08:37] LABS: ALBUMIN 2.2 g/dl (3.4-5.0); BLOOD UREA NITROGEN 25.4 mg/dL (7-18); CALCIUM 7.7 mg/dL (8.5-10.1)
[2021-04-03 08:40] LABS: PHOSPHOROUS 2.6 mg/dL (2.5-4.9)
[2021-04-03 08:42] LABS: BILIRUBIN,TOTAL 0.4 mg/dL (0.2-1); TOT PROT 5.1 g/dl (6.4-8.2)
[2021-04-03] MEDS ORDERED: PT OWN MED DRAWER 7, Y5N ONE (09:55)
[2021-04-03] MEDS: amLODIPine BESYLATE 10 MG TABLET (FP) PO SCH (10:00)
[2021-04-03] MEDS: POLYETHYLENE GLYCOL (HEALTHYLAX) 3350 17 GM PACKET PO SCH (10:00)
[2021-04-03] MEDS: metoPROLOL SUCCINATE 25 MG TAB.SR.24H (FP) PO SCH (10:01)
[2021-04-03] MEDS: ACETAMINOPHEN 325 MG TABLET (FP) PO PRN (21:31)
[2021-04-03] MEDS: ATORVASTATIN CA 20 MG TABLET (FP) PO SCH (21:31)
[2021-04-03] MEDS: DOCUSATE SODIUM 100 MG CAPSULE (FP) PO SCH (21:31)
[2021-04-03] MEDS ORDERED: MINERAL OIL ENEMA 133 ML ENEMA PR ONE (23:18)
[2021-04-04] MEDS: MEROPENEM 1 GM in DEXTROSE 5%-WATER 100 ML IVPB SCH ×2 (01:42→13:00)
[2021-04-04] MEDS ORDERED: DEXTROSE 5%-WATER 100 ML IVPB ONE ×2 (01:53→12:35)
[2021-04-04] MEDS ORDERED: MEROPENEM 1 GM VIAL (RESTRICTED TO ID) IVPB ONE ×2 (01:53→12:35)
[2021-04-04] MEDS: ALBUTEROL SO4 2.5/IPRATROPIUM 0.5 INH SOL 3 ML VIAL.NEB. NEB PRN (07:48)
[2021-04-04 08:08] LABS: BASO % 0.5 % (0-2.0); EOS % 3.8 % (0-4.5); HEMATOCRIT 24.5 % (35.4-49); HEMOGLOBIN 8.2 GM/dL (11.7-16.9); LYMPH % 14.9 % (8-40); MCH 30.9 pg (25.7-33.7); MCHC 33.7 g/dl (32.0-35.9); MEAN CELL VOLUME 91.7 fl (80-96); MEAN PLT VOLUME 9.3 fl (7.5-11.1); MONO % 8.4 % (3.8-10.2); NEUT % 72.4 % (42.8-82.8); PLATELET COUNT 229 10^3/uL (134-434); RBC 2.67 M/mm3 (4.00-5.60); RDW 16.4 % (11.9-15.9); WHITE BLOOD COUNT 6.8 K/mm3 (4.0-10.0)
[2021-04-04 08:31] LABS: CALCIUM 7.9 mg/dL (8.5-10.1)
[2021-04-04 08:32] LABS: ALBUMIN 2.2 g/dl (3.4-5.0); BLOOD UREA NITROGEN 26.7 mg/dL (7-18)
[2021-04-04 08:35] LABS: CREATININE 2.1 mg/dL (0.55-1.3)
[2021-04-04 08:36] LABS: BILIRUBIN,TOTAL 0.4 mg/dL (0.2-1); TOT PROT 5.5 g/dl (6.4-8.2)
[2021-04-04] MEDS ORDERED: PT OWN MED DRAWER 7, Y5N ONE ×2 (09:56→11:28)
[2021-04-04] MEDS: POLYETHYLENE GLYCOL (HEALTHYLAX) 3350 17 GM PACKET PO SCH ×3 (10:00→11:36)
[2021-04-04] MEDS: metoPROLOL SUCCINATE 25 MG TAB.SR.24H (FP) PO SCH (10:01)
[2021-04-04] MEDS: amLODIPine BESYLATE 10 MG TABLET (FP) PO SCH (10:01)
[2021-04-04 14:24] VITALS: BP 132/58; PULSE 89; TEMP 98.2
== END 2021-04-04 17:23 | disposition home or self-care (01) | DRG 713 ==
LOC: JER 13:30 → JERBED 16:46 → J8W 21:40
PROVIDERS: ADMIT Internal Medicine; ATTEND Internal Medicine
PROC: 0V507ZZ Destruction of Prostate, Via Natural or Artificial Opening (ICD-10-PCS; 2021-03-29)
PROC: 3E1K88Z Irrigation of Genitourinary Tract using Irrigating Substance, Via Natural or Artificial Opening Endoscopic (ICD-10-PCS; 2021-03-29)
PROC: 0TCB8ZZ Extirpation of Matter from Bladder, Via Natural or Artificial Opening Endoscopic (ICD-10-PCS; principal; 2021-03-29 14:30)
DX: C61 Malignant neoplasm of prostate (principal); Z16.12 Extended spectrum beta lactamase (ESBL) resistance; N39.0 Urinary tract infection, site not specified; N17.9 Acute kidney failure, unspecified; R31.0 Gross hematuria; R33.9 Retention of urine, unspecified; E87.5 Hyperkalemia; N18.9 Chronic kidney disease, unspecified; D72.829 Elevated white blood cell count, unspecified; D64.9 Anemia, unspecified; Z93.50 Unspecified cystostomy status; E78.5 Hyperlipidemia, unspecified; I12.9 Hypertensive chronic kidney disease with stage 1 through stage 4 chronic kidney disease, or unspecified chronic kidney disease; B96.20 Unspecified Escherichia coli [E. coli] as the cause of diseases classified elsewhere; T85.9XXA Unspecified complication of internal prosthetic device, implant and graft, initial encounter; Y83.9 Surgical procedure, unspecified as the cause of abnormal reaction of the patient, or of later complication, without mention of misadventure at the time of the procedure
CPT/HCPCS: 36415; 80053; 82607; 82728; 82746; 83540; 83550; 84100; 84550; 85025; 85027; 85610; 85730; 86850; 86900; 86901; 87086; 90686; 93005; 93010; 94640; 94760; 97116-GP; 97161-GP; 99285-25; C9803; G0008; U0003; U0005

== ENCOUNTER 2021-04-06 23:09 | Inpatient (IN) | payer OTHER ==
[2021-04-07 00:46] LABS: BASO % 0.7 % (0-2.0); EOS % 6.3 % (0-4.5); HEMATOCRIT 23.1 % (35.4-49); HEMOGLOBIN 7.6 GM/dL (11.7-16.9); LYMPH % 22.6 % (8-40); MCH 29.8 pg (25.7-33.7); MCHC 32.8 g/dl (32.0-35.9); MEAN CELL VOLUME 90.6 fl (80-96); MEAN PLT VOLUME 8.5 fl (7.5-11.1); MONO % 11.3 % (3.8-10.2); NEUT % 59.1 % (42.8-82.8); PLATELET COUNT 301 10^3/uL (134-434); RBC 2.55 M/mm3 (4.00-5.60); RDW 16.7 % (11.9-15.9); WHITE BLOOD COUNT 4.9 K/mm3 (4.0-10.0)
[2021-04-07 01:05] LABS: BLOOD UREA NITROGEN 28.6 mg/dL (7-18); CALCIUM 7.8 mg/dL (8.5-10.1)
[2021-04-07 01:06] LABS: ALBUMIN 2.3 g/dl (3.4-5.0)
[2021-04-07 01:08] LABS: CREATININE 2.1 mg/dL (0.55-1.3)
[2021-04-07 01:10] LABS: BILIRUBIN,TOTAL 0.2 mg/dL (0.2-1); TOT PROT 5.6 g/dl (6.4-8.2)
[2021-04-07 01:58] LABS: EPI CELLS 21 /uL (0-25.1); HYALINE CASTS 1 /uL (0-3.1); PH,URINE 6.5 (5.0-8.0); URINE APPEARANCE CLEAR; URINE BACTERIA 34 /uL (0-1359); URINE BILIRUBIN NEGATIVE (NEGATIVE); URINE COLOR RED; URINE GLUCOSE (UA) NEGATIVE (NEGATIVE); URINE KETONE NEGATIVE (NEGATIVE); URINE LEUK ESTERASE 2+ (NEGATIVE); URINE NITRITE NEGATIVE (NEGATIVE); URINE PROTEIN 2+ (NEGATIVE); URINE RBC 4102 /uL (0-23.9); URINE UROBILINOGEN 0.2 mg/dL (0.2-1.0); URINE WBC 67 /uL (0-25.8)
[2021-04-07] MEDS ORDERED: PT OWN MED DRAWER 7, Y5N ONE ×3 (09:47→20:48)
[2021-04-07] MEDS: amLODIPine BESYLATE 10 MG TABLET (FP) PO SCH (10:00)
[2021-04-07] MEDS ORDERED: POLYETHYLENE GLYCOL (HEALTHYLAX) 3350 17 GM PACKET PO SCH (10:00)
[2021-04-07] MEDS: CLOPIDOGREL BISULFATE 75 MG TABLET (FP) PO SCH (10:00)
[2021-04-07] MEDS: ASPIRIN 81 MG CHEWABLE TABLETS PO SCH (10:00)
[2021-04-07] MEDS: FERROUS GLUCONATE 324 MG TAB (FP) PO SCH ×2 (10:00→21:15)
[2021-04-07] MEDS: metoPROLOL SUCCINATE 25 MG TAB.SR.24H (FP) PO SCH (10:00)
[2021-04-07 10:41] LABS: BASO % 0.4 % (0-2.0); EOS % 5.6 % (0-4.5); HEMATOCRIT 23.2 % (35.4-49); HEMOGLOBIN 7.8 GM/dL (11.7-16.9); LYMPH % 18.8 % (8-40); MCH 30.2 pg (25.7-33.7); MCHC 33.4 g/dl (32.0-35.9); MEAN CELL VOLUME 90.4 fl (80-96); MEAN PLT VOLUME 8.4 fl (7.5-11.1); MONO % 9.8 % (3.8-10.2); NEUT % 65.4 % (42.8-82.8); PLATELET COUNT 343 10^3/uL (134-434); RBC 2.57 M/mm3 (4.00-5.60); RDW 16.4 % (11.9-15.9); WHITE BLOOD COUNT 5.1 K/mm3 (4.0-10.0)
[2021-04-07 11:02] LABS: ALBUMIN 2.3 g/dl (3.4-5.0); CALCIUM 7.8 mg/dL (8.5-10.1)
[2021-04-07 11:03] LABS: BLOOD UREA NITROGEN 24.7 mg/dL (7-18)
[2021-04-07 11:06] LABS: CREATININE 1.9 mg/dL (0.55-1.3)
[2021-04-07 11:07] LABS: BILIRUBIN,TOTAL 0.3 mg/dL (0.2-1); TOT PROT 5.7 g/dl (6.4-8.2)
[2021-04-07] MEDS: ATORVASTATIN CA 20 MG TABLET (FP) PO SCH (21:15)
[2021-04-07] MEDS ORDERED: DOCUSATE SODIUM 100 MG CAPSULE (FP) PO SCH (22:00)
[2021-04-08] MEDS: morphine SULFATE 4 MG/ML VIAL IVPUSH PRN ×2 (01:00→10:17)
[2021-04-08 09:41] LABS: BASO % 0.4 % (0-2.0); EOS % 3.3 % (0-4.5); HEMOGLOBIN 9.1 GM/dL (11.7-16.9); LYMPH % 11.8 % (8-40); MCH 30.2 pg (25.7-33.7); MCHC 33.6 g/dl (32.0-35.9); MEAN PLT VOLUME 8.7 fl (7.5-11.1); MONO % 5.9 % (3.8-10.2); NEUT % 78.6 % (42.8-82.8); PLATELET COUNT 376 10^3/uL (134-434); WHITE BLOOD COUNT 6.4 K/mm3 (4.0-10.0)
[2021-04-08 09:57] LABS: ALBUMIN 2.3 g/dl (3.4-5.0); BLOOD UREA NITROGEN 20.5 mg/dL (7-18)
[2021-04-08 09:58] LABS: BILIRUBIN,TOTAL 0.4 mg/dL (0.2-1)
[2021-04-08 10:00] LABS: TOT PROT 5.8 g/dl (6.4-8.2)
[2021-04-08] MEDS ORDERED: PT OWN MED DRAWER 7, Y5N ONE ×2 (10:14→22:38)
[2021-04-08] MEDS: metoPROLOL SUCCINATE 25 MG TAB.SR.24H (FP) PO SCH (10:18)
[2021-04-08] MEDS: FERROUS GLUCONATE 324 MG TAB (FP) PO SCH ×2 (10:18→22:31)
[2021-04-08] MEDS: amLODIPine BESYLATE 10 MG TABLET (FP) PO SCH (10:18)
[2021-04-08] MEDS ORDERED: PIPERACILLIN/TAZOBACTAM 2.25 GM VIAL IVPB ONE ×2 (14:23→17:20)
[2021-04-08] MEDS ORDERED: DEXTROSE 5%-WATER - 50 ML IVPB ONE ×2 (14:24→17:20)
[2021-04-08] MEDS: PIPERACILLIN/TAZOB 2.25 GM 2.25 GM in DEXTROSE 5%-WATER - 50 ML IVPB SCH ×2 (14:28→17:25)
[2021-04-08] MEDS: guaiFENesin 200 MG/10 ML 10 ML UNIT-DOSE CUPS PO PRN (15:50)
[2021-04-08] MEDS: ACETAMINOPHEN 325 MG TABLET (FP) PO PRN (20:12)
[2021-04-08] MEDS ORDERED: IBUPROFEN 400 MG TABLET (FP) PO ONE (22:05)
[2021-04-08] MEDS: ATORVASTATIN CA 20 MG TABLET (FP) PO SCH (22:33)
[2021-04-09] MEDS ORDERED: PIPERACILLIN/TAZOBACTAM 2.25 GM VIAL IVPB ONE ×3 (01:25→17:58)
[2021-04-09] MEDS ORDERED: DEXTROSE 5%-WATER - 50 ML IVPB ONE ×3 (01:26→17:58)
[2021-04-09] MEDS: PIPERACILLIN/TAZOB 2.25 GM 2.25 GM in DEXTROSE 5%-WATER - 50 ML IVPB SCH ×3 (01:29→18:13)
[2021-04-09 09:01] LABS: BASO % 0.2 % (0-2.0); HEMATOCRIT 28.1 % (35.4-49); HEMOGLOBIN 9.5 GM/dL (11.7-16.9); LYMPH % 11.1 % (8-40); MCH 30.2 pg (25.7-33.7); MCHC 33.8 g/dl (32.0-35.9); MEAN CELL VOLUME 89.3 fl (80-96); MEAN PLT VOLUME 8.2 fl (7.5-11.1); MONO % 7.8 % (3.8-10.2); NEUT % 76.9 % (42.8-82.8); PLATELET COUNT 351 10^3/uL (134-434); RBC 3.15 M/mm3 (4.00-5.60); WHITE BLOOD COUNT 8.8 K/mm3 (4.0-10.0)
[2021-04-09 09:25] LABS: ALBUMIN 2.4 g/dl (3.4-5.0); BLOOD UREA NITROGEN 21.4 mg/dL (7-18)
[2021-04-09 09:28] LABS: CREATININE 2.2 mg/dL (0.55-1.3)
[2021-04-09 09:30] LABS: BILIRUBIN,TOTAL 0.4 mg/dL (0.2-1)
[2021-04-09] MEDS ORDERED: PT OWN MED DRAWER 7, Y5N ONE ×2 (10:26→21:40)
[2021-04-09] MEDS: metoPROLOL SUCCINATE 25 MG TAB.SR.24H (FP) PO SCH (10:42)
[2021-04-09] MEDS: amLODIPine BESYLATE 10 MG TABLET (FP) PO SCH (10:42)
[2021-04-09] MEDS: FERROUS GLUCONATE 324 MG TAB (FP) PO SCH ×2 (10:42→21:43)
[2021-04-09] MEDS: guaiFENesin 200 MG/10 ML 10 ML UNIT-DOSE CUPS PO PRN (21:44)
[2021-04-09] MEDS: ATORVASTATIN CA 20 MG TABLET (FP) PO SCH (21:44)
[2021-04-09] MEDS: morphine SULFATE 4 MG/ML VIAL IVPUSH PRN (22:51)
[2021-04-10] MEDS ORDERED: PIPERACILLIN/TAZOBACTAM 2.25 GM VIAL IVPB ONE ×3 (02:05→17:31)
[2021-04-10] MEDS ORDERED: DEXTROSE 5%-WATER - 50 ML IVPB ONE ×3 (02:05→17:32)
[2021-04-10] MEDS: PIPERACILLIN/TAZOB 2.25 GM 2.25 GM in DEXTROSE 5%-WATER - 50 ML IVPB SCH ×3 (02:13→18:23)
[2021-04-10 09:15] LABS: BASO % 0.5 % (0-2.0); EOS % 5.8 % (0-4.5); HEMATOCRIT 28.4 % (35.4-49); HEMOGLOBIN 9.5 GM/dL (11.7-16.9); LYMPH % 19.1 % (8-40); MCHC 33.5 g/dl (32.0-35.9); MEAN CELL VOLUME 89.5 fl (80-96); MEAN PLT VOLUME 8.7 fl (7.5-11.1); MONO % 9.5 % (3.8-10.2); NEUT % 65.1 % (42.8-82.8); PLATELET COUNT 375 10^3/uL (134-434); RBC 3.17 M/mm3 (4.00-5.60); RDW 15.8 % (11.9-15.9)
[2021-04-10 09:44] LABS: BLOOD UREA NITROGEN 22.8 mg/dL (7-18); CALCIUM 7.5 mg/dL (8.5-10.1)
[2021-04-10] MEDS ORDERED: PT OWN MED DRAWER 7, Y5N ONE (09:45)
[2021-04-10 09:47] LABS: CREATININE 2.2 mg/dL (0.55-1.3)
[2021-04-10 09:48] LABS: BILIRUBIN,TOTAL 0.3 mg/dL (0.2-1); TOT PROT 5.9 g/dl (6.4-8.2)
[2021-04-10 09:49] LABS: ALBUMIN 2.2 g/dl (3.4-5.0)
[2021-04-10] MEDS: ASPIRIN 81 MG CHEWABLE TABLETS PO SCH (10:12)
[2021-04-10] MEDS: CLOPIDOGREL BISULFATE 75 MG TABLET (FP) PO SCH (10:12)
[2021-04-10] MEDS: metoPROLOL SUCCINATE 25 MG TAB.SR.24H (FP) PO SCH (10:12)
[2021-04-10] MEDS: FERROUS GLUCONATE 324 MG TAB (FP) PO SCH ×2 (10:12→21:24)
[2021-04-10] MEDS: amLODIPine BESYLATE 10 MG TABLET (FP) PO SCH (10:12)
[2021-04-10] MEDS: ATORVASTATIN CA 20 MG TABLET (FP) PO SCH (21:24)
[2021-04-11] MEDS ORDERED: DEXTROSE 5%-WATER - 50 ML IVPB ONE ×3 (00:06→18:27)
[2021-04-11] MEDS ORDERED: PIPERACILLIN/TAZOBACTAM 2.25 GM VIAL IVPB ONE ×3 (00:06→18:26)
[2021-04-11] MEDS: guaiFENesin 200 MG/10 ML 10 ML UNIT-DOSE CUPS PO PRN ×3 (00:21→18:40)
[2021-04-11] MEDS: PIPERACILLIN/TAZOB 2.25 GM 2.25 GM in DEXTROSE 5%-WATER - 50 ML IVPB SCH ×3 (01:19→18:41)
[2021-04-11 08:52] LABS: BASO % 0.5 % (0-2.0); EOS % 6.7 % (0-4.5); HEMATOCRIT 27.8 % (35.4-49); HEMOGLOBIN 9.6 GM/dL (11.7-16.9); LYMPH % 23.8 % (8-40); MCH 30.7 pg (25.7-33.7); MCHC 34.4 g/dl (32.0-35.9); MEAN CELL VOLUME 89.3 fl (80-96); MEAN PLT VOLUME 8.3 fl (7.5-11.1); PLATELET COUNT 419 10^3/uL (134-434); RBC 3.12 M/mm3 (4.00-5.60); RDW 16.1 % (11.9-15.9); WHITE BLOOD COUNT 4.9 K/mm3 (4.0-10.0)
[2021-04-11 09:10] LABS: ALBUMIN 2.5 g/dl (3.4-5.0); BLOOD UREA NITROGEN 20.6 mg/dL (7-18); CALCIUM 8.2 mg/dL (8.5-10.1)
[2021-04-11 09:14] LABS: CREATININE 2.4 mg/dL (0.55-1.3)
[2021-04-11 09:15] LABS: BILIRUBIN,TOTAL 0.4 mg/dL (0.2-1)
[2021-04-11 09:16] LABS: TOT PROT 6.4 g/dl (6.4-8.2)
[2021-04-11] MEDS ORDERED: PT OWN MED DRAWER 7, Y5N ONE ×2 (11:05→20:52)
[2021-04-11] MEDS: FERROUS GLUCONATE 324 MG TAB (FP) PO SCH ×2 (11:10→21:10)
[2021-04-11] MEDS: amLODIPine BESYLATE 10 MG TABLET (FP) PO SCH (11:10)
[2021-04-11] MEDS: metoPROLOL SUCCINATE 25 MG TAB.SR.24H (FP) PO SCH (11:10)
[2021-04-11] MEDS: morphine SULFATE 4 MG/ML VIAL IVPUSH PRN ×2 (11:53→21:14)
[2021-04-11] MEDS: ACETAMINOPHEN 325 MG TABLET (FP) PO PRN (18:41)
[2021-04-11] MEDS: ATORVASTATIN CA 20 MG TABLET (FP) PO SCH (21:10)
[2021-04-12] MEDS ORDERED: PIPERACILLIN/TAZOBACTAM 2.25 GM VIAL IVPB ONE ×3 (02:19→18:18)
[2021-04-12] MEDS ORDERED: DEXTROSE 5%-WATER - 50 ML IVPB ONE ×3 (02:19→18:18)
[2021-04-12] MEDS: PIPERACILLIN/TAZOB 2.25 GM 2.25 GM in DEXTROSE 5%-WATER - 50 ML IVPB SCH ×3 (02:21→18:23)
[2021-04-12 09:08] LABS: BASO % 0.5 % (0-2.0); EOS % 7.8 % (0-4.5); HEMATOCRIT 27.3 % (35.4-49); HEMOGLOBIN 8.9 GM/dL (11.7-16.9); LYMPH % 30.5 % (8-40); MCH 29.9 pg (25.7-33.7); MCHC 32.7 g/dl (32.0-35.9); MEAN CELL VOLUME 91.4 fl (80-96); MEAN PLT VOLUME 8.5 fl (7.5-11.1); MONO % 8.7 % (3.8-10.2); NEUT % 52.5 % (42.8-82.8); PLATELET COUNT 411 10^3/uL (134-434); RBC 2.99 M/mm3 (4.00-5.60); RDW 15.9 % (11.9-15.9); WHITE BLOOD COUNT 4.6 K/mm3 (4.0-10.0)
[2021-04-12 09:44] LABS: CALCIUM 8.6 mg/dL (8.5-10.1)
[2021-04-12 09:45] LABS: ALBUMIN 2.2 g/dl (3.4-5.0); BLOOD UREA NITROGEN 22.2 mg/dL (7-18)
[2021-04-12 09:48] LABS: CREATININE 2.3 mg/dL (0.55-1.3)
[2021-04-12 09:49] LABS: BILIRUBIN,TOTAL 0.3 mg/dL (0.2-1)
[2021-04-12] MEDS: FERROUS GLUCONATE 324 MG TAB (FP) PO SCH ×2 (10:24→21:28)
[2021-04-12] MEDS: guaiFENesin 200 MG/10 ML 10 ML UNIT-DOSE CUPS PO PRN ×2 (10:24→21:30)
[2021-04-12] MEDS: amLODIPine BESYLATE 10 MG TABLET (FP) PO SCH (10:25)
[2021-04-12] MEDS: metoPROLOL SUCCINATE 25 MG TAB.SR.24H (FP) PO SCH (10:25)
[2021-04-12] MEDS: POLYETHYLENE GLYCOL (HEALTHYLAX) 3350 17 GM PACKET PO SCH ×2 (15:17→21:28)
[2021-04-12] MEDS: ACETAMINOPHEN 325 MG TABLET (FP) PO PRN (21:27)
[2021-04-12] MEDS: DOCUSATE SODIUM 100 MG CAPSULE (FP) PO SCH (21:27)
[2021-04-12] MEDS: ATORVASTATIN CA 20 MG TABLET (FP) PO SCH (21:46)
[2021-04-13] MEDS ORDERED: morphine SULFATE 4 MG/ML VIAL IVPUSH ONE (02:30)
[2021-04-13] MEDS ORDERED: DEXTROSE 5%-WATER - 50 ML IVPB ONE ×3 (02:51→18:02)
[2021-04-13] MEDS ORDERED: PIPERACILLIN/TAZOBACTAM 2.25 GM VIAL IVPB ONE ×3 (02:51→18:02)
[2021-04-13] MEDS: ACETAMINOPHEN 325 MG TABLET (FP) PO PRN ×2 (02:56→21:19)
[2021-04-13] MEDS: PIPERACILLIN/TAZOB 2.25 GM 2.25 GM in DEXTROSE 5%-WATER - 50 ML IVPB SCH ×3 (02:57→18:08)
[2021-04-13 09:33] LABS: BASO % 0.9 % (0-2.0); EOS % 8.7 % (0-4.5); HEMATOCRIT 26.6 % (35.4-49); HEMOGLOBIN 8.7 GM/dL (11.7-16.9); LYMPH % 30.7 % (8-40); MCH 28.9 pg (25.7-33.7); MCHC 32.6 g/dl (32.0-35.9); MEAN CELL VOLUME 88.6 fl (80-96); MEAN PLT VOLUME 8.1 fl (7.5-11.1); MONO % 7.2 % (3.8-10.2); NEUT % 52.5 % (42.8-82.8); PLATELET COUNT 377 10^3/uL (134-434); RBC 3.01 M/mm3 (4.00-5.60); RDW 15.6 % (11.9-15.9); WHITE BLOOD COUNT 3.6 K/mm3 (4.0-10.0)
[2021-04-13 10:06] LABS: ALBUMIN 2.2 g/dl (3.4-5.0); BLOOD UREA NITROGEN 20.9 mg/dL (7-18); CALCIUM 8.1 mg/dL (8.5-10.1)
[2021-04-13 10:09] LABS: CREATININE 2.2 mg/dL (0.55-1.3)
[2021-04-13 10:10] LABS: BILIRUBIN,TOTAL 0.3 mg/dL (0.2-1); TOT PROT 5.9 g/dl (6.4-8.2)
[2021-04-13] MEDS ORDERED: PT OWN MED DRAWER 7, Y5N ONE ×2 (10:52→21:15)
[2021-04-13] MEDS: metoPROLOL SUCCINATE 25 MG TAB.SR.24H (FP) PO SCH (10:54)
[2021-04-13] MEDS: DOCUSATE SODIUM 100 MG CAPSULE (FP) PO SCH ×2 (10:54→21:20)
[2021-04-13] MEDS: FERROUS GLUCONATE 324 MG TAB (FP) PO SCH ×2 (10:55→21:19)
[2021-04-13] MEDS: amLODIPine BESYLATE 10 MG TABLET (FP) PO SCH (10:55)
[2021-04-13] MEDS: POLYETHYLENE GLYCOL (HEALTHYLAX) 3350 17 GM PACKET PO SCH ×2 (10:55→21:20)
[2021-04-13] MEDS: guaiFENesin 200 MG/10 ML 10 ML UNIT-DOSE CUPS PO PRN (21:20)
[2021-04-13] MEDS: ATORVASTATIN CA 20 MG TABLET (FP) PO SCH (21:20)
[2021-04-14] MEDS ORDERED: PIPERACILLIN/TAZOBACTAM 2.25 GM VIAL IVPB ONE ×3 (01:59→17:54)
[2021-04-14] MEDS ORDERED: DEXTROSE 5%-WATER - 50 ML IVPB ONE ×3 (01:59→17:55)
[2021-04-14] MEDS: PIPERACILLIN/TAZOB 2.25 GM 2.25 GM in DEXTROSE 5%-WATER - 50 ML IVPB SCH ×3 (02:17→17:57)
[2021-04-14] MEDS: POLYETHYLENE GLYCOL (HEALTHYLAX) 3350 17 GM PACKET PO SCH ×2 (10:22→21:37)
[2021-04-14] MEDS: DOCUSATE SODIUM 100 MG CAPSULE (FP) PO SCH ×2 (10:22→21:37)
[2021-04-14] MEDS: metoPROLOL SUCCINATE 25 MG TAB.SR.24H (FP) PO SCH (10:22)
[2021-04-14] MEDS: amLODIPine BESYLATE 10 MG TABLET (FP) PO SCH (10:22)
[2021-04-14] MEDS: FERROUS GLUCONATE 324 MG TAB (FP) PO SCH ×2 (10:26→21:39)
[2021-04-14] MEDS ORDERED: PT OWN MED DRAWER 7, Y5N ONE ×2 (10:26→21:21)
[2021-04-14 17:56] VITALS: BMI 28.6
[2021-04-14] MEDS: guaiFENesin 200 MG/10 ML 10 ML UNIT-DOSE CUPS PO PRN (21:38)
[2021-04-14] MEDS: ATORVASTATIN CA 20 MG TABLET (FP) PO SCH (21:39)
[2021-04-14] MEDS: ACETAMINOPHEN 325 MG TABLET (FP) PO PRN (21:39)
[2021-04-15] MEDS ORDERED: PIPERACILLIN/TAZOBACTAM 2.25 GM VIAL IVPB ONE ×2 (01:13→09:53)
[2021-04-15] MEDS ORDERED: DEXTROSE 5%-WATER - 50 ML IVPB ONE ×2 (01:13→09:53)
[2021-04-15] MEDS: PIPERACILLIN/TAZOB 2.25 GM 2.25 GM in DEXTROSE 5%-WATER - 50 ML IVPB SCH ×2 (01:50→09:57)
[2021-04-15 06:13] VITALS: PULSE 68
[2021-04-15] MEDS: POLYETHYLENE GLYCOL (HEALTHYLAX) 3350 17 GM PACKET PO SCH (09:49)
[2021-04-15] MEDS: DOCUSATE SODIUM 100 MG CAPSULE (FP) PO SCH (09:49)
[2021-04-15] MEDS ORDERED: PT OWN MED DRAWER 7, Y5N ONE (09:54)
[2021-04-15] MEDS: guaiFENesin 200 MG/10 ML 10 ML UNIT-DOSE CUPS PO PRN (09:56)
[2021-04-15] MEDS: metoPROLOL SUCCINATE 25 MG TAB.SR.24H (FP) PO SCH (09:57)
[2021-04-15] MEDS: FERROUS GLUCONATE 324 MG TAB (FP) PO SCH (09:57)
[2021-04-15] MEDS: amLODIPine BESYLATE 10 MG TABLET (FP) PO SCH (09:57)
[2021-04-15 14:15] VITALS: BP 140/61; TEMP 98.1
[2021-04-15 14:17] LABS: BASO % 0.7 % (0-2.0); EOS % 12.1 % (0-4.5); HEMATOCRIT 28.7 % (35.4-49); HEMOGLOBIN 9.4 GM/dL (11.7-16.9); LYMPH % 24.2 % (8-40); MCH 29.6 pg (25.7-33.7); MCHC 32.8 g/dl (32.0-35.9); MEAN CELL VOLUME 90.1 fl (80-96); MEAN PLT VOLUME 8.2 fl (7.5-11.1); MONO % 4.6 % (3.8-10.2); NEUT % 58.4 % (42.8-82.8); PLATELET COUNT 417 10^3/uL (134-434); RBC 3.19 M/mm3 (4.00-5.60); RDW 16.1 % (11.9-15.9); WHITE BLOOD COUNT 5.1 K/mm3 (4.0-10.0)
[2021-04-15 14:59] LABS: ALBUMIN 2.5 g/dl (3.4-5.0); BLOOD UREA NITROGEN 22.3 mg/dL (7-18)
[2021-04-15 15:02] LABS: CREATININE 2.5 mg/dL (0.55-1.3)
[2021-04-15 15:04] LABS: BILIRUBIN,TOTAL 0.2 mg/dL (0.2-1); TOT PROT 6.3 g/dl (6.4-8.2)
== END 2021-04-15 18:05 | disposition home or self-care (01) | DRG 699 ==
LOC: JER 23:09 → JERBED 04-07 01:32 → J8W 04-07 06:03
PROVIDERS: ADMIT Internal Medicine; ATTEND Internal Medicine
PROC: 30233N1 Transfusion of Nonautologous Red Blood Cells into Peripheral Vein, Percutaneous Approach (ICD-10-PCS; principal; 2021-04-07)
DX: T83.510A Infection and inflammatory reaction due to cystostomy catheter, initial encounter (principal); N39.0 Urinary tract infection, site not specified; D62 Acute posthemorrhagic anemia; I13.0 Hypertensive heart and chronic kidney disease with heart failure and stage 1 through stage 4 chronic kidney disease, or unspecified chronic kidney disease; I50.30 Unspecified diastolic (congestive) heart failure; N13.30 Unspecified hydronephrosis; R31.0 Gross hematuria; E78.5 Hyperlipidemia, unspecified; E78.00 Pure hypercholesterolemia, unspecified; N18.9 Chronic kidney disease, unspecified; I25.119 Atherosclerotic heart disease of native coronary artery with unspecified angina pectoris; R74.01 Elevation of levels of liver transaminase levels; Y83.9 Surgical procedure, unspecified as the cause of abnormal reaction of the patient, or of later complication, without mention of misadventure at the time of the procedure; Z95.1 Presence of aortocoronary bypass graft; Z98.61 Coronary angioplasty status; M48.00 Spinal stenosis, site unspecified
CPT/HCPCS: 36415; 36430; 71046-TC-FY; 74176-TC; 78708-TC; 80053; 80061; 81003; 82962; 83880; 84443; 85025; 86850; 86900; 86901; 86922; 87040; 87086; 87186; 93005; 93010; 93306-TC; 99285-25; A9562; C9803; P9058; U0003; U0005

== ENCOUNTER 2021-08-12 15:39 | Emergency (ER) | payer OTHER ==
[2021-08-12 16:07] VITALS: TEMP 98.2; BMI 27.3
[2021-08-12 18:13] VITALS: BP 158/77; PULSE 88
[2021-08-12 18:41] LABS: EPITHELIAL CELLS RARE /hpf
[2021-08-12 19:23] LABS: BASO % 0.2 % (0-2.0); EOS % 2.5 % (0-4.5); HEMATOCRIT 43.3 % (35.4-49); HEMOGLOBIN 14.4 GM/dL (11.7-16.9); LYMPH % 18.8 % (8-40); MCH 29.4 pg (25.7-33.7); MCHC 33.3 g/dl (32.0-35.9); MEAN CELL VOLUME 88.4 fl (80-96); MEAN PLT VOLUME 8.2 fl (7.5-11.1); MONO % 7.3 % (3.8-10.2); NEUT % 71.2 % (42.8-82.8); PLATELET COUNT 219 10^3/uL (134-434); RBC 4.89 M/mm3 (4.00-5.60); RDW 16.6 % (11.9-15.9); WHITE BLOOD COUNT 6.1 K/mm3 (4.0-10.0)
== END 2021-08-12 18:26 | disposition home or self-care (01) ==
LOC: FER 15:39
DX: R31.9 Hematuria, unspecified (principal)
CPT/HCPCS: 36415; 81003; 81015; 85025; 87086; 87186; 99284-25

== ENCOUNTER 2021-08-13 02:33 | Observation (INO) | payer OTHER ==
[2021-08-13 05:48] LABS: BASO % 0.3 % (0-2.0); EOS % 2.7 % (0-4.5); HEMATOCRIT 39.3 % (35.4-49); HEMOGLOBIN 12.6 GM/dL (11.7-16.9); LYMPH % 19.2 % (8-40); MCH 28.6 pg (25.7-33.7); MEAN CELL VOLUME 89.3 fl (80-96); MEAN PLT VOLUME 8.5 fl (7.5-11.1); MONO % 8.6 % (3.8-10.2); NEUT % 69.2 % (42.8-82.8); PLATELET COUNT 197 10^3/uL (134-434); RDW 16.6 % (11.9-15.9); WHITE BLOOD COUNT 6.6 K/mm3 (4.0-10.0)
[2021-08-13 05:54] LABS: INR 1.16 (0.83-1.09); PROTHROMBIN TIME (PATIENT) 13.4 SEC (9.7-13.0)
[2021-08-13 06:02] LABS: ALBUMIN 3.2 g/dl (3.4-5.0); BILIRUBIN,TOTAL 0.4 mg/dL (0.2-1); BLOOD UREA NITROGEN 22.6 mg/dL (7-18); CREATININE 1.9 mg/dL (0.55-1.3)
[2021-08-13 06:22] LABS: URINE APPEARANCE TURBID; URINE BILIRUBIN 3+ (NEGATIVE); URINE COLOR RED; URINE GLUCOSE (UA) NEGATIVE (NEGATIVE); URINE KETONE NEGATIVE (NEGATIVE)
[2021-08-13 06:23] LABS: URINE NITRITE POSITIVE (NEGATIVE); URINE PROTEIN 300 (NEGATIVE); URINE UROBILINOGEN 0.2 mg/dL (0.2-1.0)
[2021-08-13 06:24] LABS: URINE LEUK ESTERASE 3+ (NEGATIVE)
[2021-08-13 06:30] LABS: EPI CELLS 2 /uL (0-25.1); HYALINE CASTS 10 /uL (0-3.1); URINE BACTERIA 2 /uL (0-1359); URINE RBC 3144 /uL (0-23.9); URINE WBC 2 /uL (0-25.8)
[2021-08-13] MEDS ORDERED: ACETAMINOPHEN 325 MG TABLET (FP) PO PRN (06:57)
[2021-08-13] MEDS ORDERED: POLYETHYLENE GLYCOL 3350 119 GM BTL PO PRN (06:57)
[2021-08-13 07:05] LABS: URINE CRYSTALS NONE SEEN /hpf
[2021-08-13 08:55] VITALS: BMI 26.9
[2021-08-13] MEDS: amLODIPine BESYLATE 10 MG TABLET (FP) PO SCH (11:14)
[2021-08-13] MEDS: metoPROLOL SUCCINATE 25 MG TAB.SR.24H (FP) PO SCH (11:14)
[2021-08-13] MEDS: FERROUS GLUCONATE 324 MG TAB (FP) PO SCH ×2 (14:20→21:26)
[2021-08-13] MEDS ORDERED: ATORVASTATIN CA 20 MG TABLET (FP) PO SCH (22:00)
[2021-08-14 09:07] LABS: CALCIUM 8.6 mg/dl (8.5-10); CREATININE 2.1 mg/dl (0.55-1.3)
[2021-08-14 09:47] VITALS: BP 126/53; PULSE 58; TEMP 97.6
[2021-08-14] MEDS: amLODIPine BESYLATE 10 MG TABLET (FP) PO SCH (09:55)
[2021-08-14] MEDS: metoPROLOL SUCCINATE 25 MG TAB.SR.24H (FP) PO SCH (09:56)
[2021-08-14 10:33] LABS: BASO % 0.4 % (0-2.0); EOS % 4.2 % (0-4.5); HEMATOCRIT 43.2 % (35.4-49); HEMOGLOBIN 13.4 GM/dL (11.7-16.9); LYMPH % 26.7 % (8-40); MCH 28.4 pg (25.7-33.7); MCHC 31.1 g/dl (32.0-35.9); MEAN CELL VOLUME 91.4 fl (80-96); MEAN PLT VOLUME 8.3 fl (7.5-11.1); NEUT % 59.7 % (42.8-82.8); PLATELET COUNT 190 10^3/uL (134-434); RBC 4.73 M/mm3 (4.00-5.60); RDW 16.8 % (11.9-15.9); WHITE BLOOD COUNT 5.3 K/mm3 (4.0-10.0)
[2021-08-14 11:07] LABS: INR 1.19 (0.83-1.09); PROTHROMBIN TIME (PATIENT) 13.7 SEC (9.7-13.0)
[2021-08-14] MEDS: FERROUS GLUCONATE 324 MG TAB (FP) PO SCH (11:24)
== END 2021-08-14 12:33 | disposition home or self-care (01) ==
LOC: FER 02:33 → FM/S 07:01
PROVIDERS: ADMIT Hospitalist; ATTEND Nurse Practitioner Acute Care
PROC: 0T2BX0Z Change Drainage Device in Bladder, External Approach (ICD-10-PCS; principal; 2021-08-13)
PROC: 3E03329 Introduction of Other Anti-infective into Peripheral Vein, Percutaneous Approach (ICD-10-PCS; 2021-08-13)
DX: I10 Essential (primary) hypertension (principal); E78.5 Hyperlipidemia, unspecified; Z95.1 Presence of aortocoronary bypass graft; I25.10 Atherosclerotic heart disease of native coronary artery without angina pectoris; I11.9 Hypertensive heart disease without heart failure; I13.10 Hypertensive heart and chronic kidney disease without heart failure, with stage 1 through stage 4 chronic kidney disease, or unspecified chronic kidney disease; N18.9 Chronic kidney disease, unspecified; N39.0 Urinary tract infection, site not specified; Z85.46 Personal history of malignant neoplasm of prostate; D64.9 Anemia, unspecified; R33.9 Retention of urine, unspecified
CPT/HCPCS: 36415; 51702; 80048; 80053; 81003; 85025; 85610; 85730; 93005; 96365; 99285-25; C9803; G0378; U0003; U0005

== ENCOUNTER 2021-11-15 06:59 | Day surgery (SDC) | payer OTHER ==
[2021-11-13 13:58] VITALS: BMI 26.6
[2021-11-15] MEDS ORDERED: TETRACAINE 0.5% OPHTH SOLN 2 ML BOTTLE ONE (07:14)
[2021-11-15] MEDS ORDERED: NEO/POLYMYX B SULF/DEXAMETH OPHTHALMIC 5ML BOTTLE ONE (07:14)
[2021-11-15] MEDS ORDERED: LIDOCAINE HCL/PF 1% SDV 5ML VIAL ONE (07:14)
[2021-11-15] MEDS ORDERED: CARBACHOL 0.01% INTRA-OCULAR 1.5 ML VIAL ONE (07:14)
[2021-11-15] MEDS ORDERED: BSS (NA/CA/MG/K) BALANCED SALT SOLUTION OPHTH SOLN 15 ML BOTTLE ONE (07:14)
[2021-11-15] MEDS ORDERED: EPINEPHrine/PF 1 MG/1 ML (1:1,000) AMPULE ONE (07:14)
[2021-11-15] MEDS: PHENYLEPHRINE 2.5% OPHTH SOLN 15 ML BOTTLE ONE ×3 (08:10→08:20)
[2021-11-15] MEDS: CIPROFLOXACIN 0.3% EYE DROPS 5 ML BOTTLE ONE ×3 (08:10→08:20)
[2021-11-15] MEDS: CYCLOPENTOLATE 2% OPHTH SOLN 2 ML BOTTLE ONE ×3 (08:10→08:20)
[2021-11-15] MEDS: TROPICAMIDE 1% OPHTH SOLN 15 ML BOTTLE ONE ×3 (08:10→08:20)
[2021-11-15] MEDS ORDERED: MIDAZOLAM HCL 2 MG/2 ML SINGLE DOSE VIAL ONE (09:45)
[2021-11-15 10:41] VITALS: PULSE 78; TEMP 98.7
[2021-11-15 10:42] VITALS: BP 154/78
== END 2021-11-15 11:00 | disposition home or self-care (01) ==
LOC: FASU 06:59
PROVIDERS: ATTEND Ophthalmology
PROC: 08RJ3JZ Replacement of Right Lens with Synthetic Substitute, Percutaneous Approach (ICD-10-PCS; principal; 2021-11-15 09:55)
DX: H26.8 Other specified cataract (principal)
CPT/HCPCS: 66984; V2632

== ENCOUNTER 2021-11-20 00:42 | Emergency (ER) | payer OTHER ==
[2021-11-20 00:49] VITALS: BP 159/65; PULSE 73; TEMP 98.5; BMI 29.0
== END 2021-11-20 01:15 | disposition left against medical advice (07) ==
LOC: FER 00:42
DX: T83.9XXA Unspecified complication of genitourinary prosthetic device, implant and graft, initial encounter (principal)
CPT/HCPCS: 99283-25

== ENCOUNTER 2021-11-20 09:17 | Emergency (ER) | payer OTHER ==
[2021-11-20 09:34] VITALS: BP 168/84; PULSE 89; TEMP 97.6; BMI 29.0
[2021-11-20 10:37] LABS: HEMATOCRIT 43.9 % (35.4-49); HEMOGLOBIN 15.3 G/dL (11.7-16.9); MCH 32.5 pg (25.7-33.7); MCHC 34.8 g/dl (32.0-35.9); MEAN CELL VOLUME 93.3 fl (80-96); MEAN PLT VOLUME 8.3 fl (7.5-11.1); PLATELET COUNT 161.7 10^3/uL (134-434); RDW 14.9 % (11.9-15.9); WHITE BLOOD COUNT 6.8 10^3/uL (4.0-10.8)
[2021-11-20 10:48] LABS: ALBUMIN 3.8 g/dl (3.4-5.0); BILIRUBIN,TOTAL 0.5 mg/dl (0.2-1); CALCIUM 9.1 mg/dl (8.5-10); CREATININE 1.9 mg/dl (0.55-1.3); TOT PROT 6.7 g/dl (6.4-8.2)
[2021-11-20 11:08] LABS: EPITHELIAL CELLS RARE /hpf
[2021-11-20] MEDS ORDERED: levoFLOXacin 750 MG TABLET PO SCH (11:30)
== END 2021-11-20 11:28 | disposition home or self-care (01) ==
LOC: FER 09:17
DX: R31.0 Gross hematuria (principal)
CPT/HCPCS: 36415; 80053; 81003; 81015; 85025; 87086; 87186; 99283-25

== ENCOUNTER 2021-11-20 20:33 | Emergency (ER) | payer OTHER ==
[2021-11-20 20:39] VITALS: BP 153/78; PULSE 78; TEMP 98.1; BMI 28.8
[2021-11-20 23:01] LABS: BASO % 0.2 % (0-2.0); EOS % 4.2 % (0-4.5); EPI CELLS 28 /uL (0-25.1); HEMOGLOBIN 14.6 GM/dL (11.7-16.9); HYALINE CASTS 1 /uL (0-3.1); LYMPH % 21.7 % (8-40); MCH 31.7 pg (25.7-33.7); MEAN CELL VOLUME 93.4 fl (80-96); MEAN PLT VOLUME 8.6 fl (7.5-11.1); MONO % 9.3 % (3.8-10.2); NEUT % 64.6 % (42.8-82.8); PH,URINE 5.5 (5.0-8.0); PLATELET COUNT 158 10^3/uL (134-434); RBC 4.61 M/mm3 (4.00-5.60); RDW 15.2 % (11.9-15.9); URINE APPEARANCE CLEAR; URINE BACTERIA 33 /uL (0-1359); URINE BILIRUBIN NEGATIVE (NEGATIVE); URINE COLOR YELLOW; URINE GLUCOSE (UA) NEGATIVE (NEGATIVE); URINE KETONE NEGATIVE (NEGATIVE); URINE LEUK ESTERASE 2+ (NEGATIVE); URINE NITRITE NEGATIVE (NEGATIVE); URINE PROTEIN 1+ (NEGATIVE); URINE RBC 87 /uL (0-23.9); URINE UROBILINOGEN 0.2 mg/dL (0.2-1.0); URINE WBC 178 /uL (0-25.8); WHITE BLOOD COUNT 5.8 K/mm3 (4.0-10.0)
[2021-11-20 23:06] LABS: INR 1.21 (0.83-1.09)
[2021-11-20 23:09] LABS: ACTIVATED PTT 34.2 SECONDS (25.2-36.5)
[2021-11-20] MEDS ORDERED: VANCOMYCIN 1 GM in D5W (PRE-DOCKED) 1,000 MG/250 ML IVPB ONE (23:13)
[2021-11-20] MEDS ORDERED: PIPERACILLIN/TAZOB 2.25 GM 2.25 GM in DEXTROSE 5%-WATER - 50 ML IVPB ONE (23:13)
[2021-11-20 23:22] LABS: ALBUMIN 3.3 g/dl (3.4-5.0); CALCIUM 8.5 mg/dL (8.5-10.1)
[2021-11-20 23:23] LABS: BLOOD UREA NITROGEN 39.2 mg/dL (7-18)
[2021-11-20 23:27] LABS: BILIRUBIN,TOTAL 0.2 mg/dL (0.2-1); TOT PROT 6.4 g/dl (6.4-8.2)
[2021-11-21] MEDS ORDERED: PIPERACILLIN/TAZOB 2.25 GM 2.25 GM/50 ML BAG IVPB ONE (00:30)
[2021-11-21] MEDS ORDERED: VANCOMYCIN 1 GRAM (PRE-DOCKED) 1,000 MG/250 ML BAG IVPB ONE (01:11)
== END 2021-11-21 03:30 | disposition home or self-care (01) ==
LOC: JER 20:33
PROC: 3E033GC Introduction of Other Therapeutic Substance into Peripheral Vein, Percutaneous Approach (ICD-10-PCS; principal; 2021-11-20)
DX: N39.0 Urinary tract infection, site not specified (principal); R31.0 Gross hematuria
CPT/HCPCS: 36415; 80053; 81003; 85025; 85610; 85730; 87086; 87186; 93005; 93010; 99284-25; C9803-CS; U0003; U0005

== ENCOUNTER 2021-12-06 06:52 | Day surgery (SDC) | payer OTHER ==
[2021-12-06] MEDS ORDERED: EPINEPHrine/PF 1 MG/1 ML (1:1,000) AMPULE ONE (07:14)
[2021-12-06] MEDS ORDERED: BSS (NA/CA/MG/K) BALANCED SALT SOLUTION OPHTH SOLN 15 ML BOTTLE ONE (07:14)
[2021-12-06] MEDS ORDERED: TETRACAINE 0.5% OPHTH SOLN 2 ML BOTTLE ONE (07:14)
[2021-12-06] MEDS ORDERED: LIDOCAINE HCL/PF 1% SDV 5ML VIAL ONE (07:14)
[2021-12-06] MEDS ORDERED: NEO/POLYMYX B SULF/DEXAMETH OPHTHALMIC 5ML BOTTLE ONE (07:15)
[2021-12-06] MEDS ORDERED: ACETYLCHOLINE 1:100 INTRA-OCUL 20 MG/2 ML KIT ONE (07:15)
[2021-12-06] MEDS ORDERED: CARBACHOL 0.01% INTRA-OCULAR 1.5 ML VIAL ONE (07:15)
[2021-12-06] MEDS: CYCLOPENTOLATE 2% OPHTH SOLN 2 ML BOTTLE ONE ×3 (07:45→07:55)
[2021-12-06] MEDS: CIPROFLOXACIN 0.3% EYE DROPS 5 ML BOTTLE ONE ×3 (07:45→07:55)
[2021-12-06] MEDS: TROPICAMIDE 1% OPHTH SOLN 15 ML BOTTLE ONE ×3 (07:45→07:55)
[2021-12-06] MEDS: PHENYLEPHRINE 2.5% OPHTH SOLN 15 ML BOTTLE ONE ×3 (07:45→07:55)
[2021-12-06 07:49] VITALS: BMI 29.2
[2021-12-06] MEDS ORDERED: MIDAZOLAM HCL 2 MG/2 ML SINGLE DOSE VIAL ONE (10:22)
[2021-12-06 11:14] VITALS: BP 135/69; PULSE 55; TEMP 98
== END 2021-12-06 11:45 | disposition home or self-care (01) ==
LOC: FASU 06:52
PROVIDERS: ATTEND Ophthalmology
PROC: 08RK3JZ Replacement of Left Lens with Synthetic Substitute, Percutaneous Approach (ICD-10-PCS; principal; 2021-12-06 10:33)
DX: H26.8 Other specified cataract (principal)
CPT/HCPCS: 66984; V2632

== ENCOUNTER 2022-02-16 12:15 | Observation (INO) | payer OTHER ==
[2022-02-16] MEDS ORDERED: FUROSEMIDE 40 MG/4 ML INJECTABLE VIAL IVPUSH ONE (12:43)
[2022-02-16] MEDS ORDERED: FUROSEMIDE 40 MG/4 ML INJECTABLE VIAL ONE (13:06)
[2022-02-16 13:36] LABS: HEMATOCRIT 44.1 % (35.4-49); HEMOGLOBIN 15.1 G/dL (11.7-16.9); MCH 33.3 pg (25.7-33.7); MCHC 34.1 g/dl (32.0-35.9); MEAN CELL VOLUME 97.5 fl (80-96); MEAN PLT VOLUME 8.8 fl (7.5-11.1); RBC 4.52 10^6/uL (4.00-5.60); RDW 16.4 % (11.9-15.9); WHITE BLOOD COUNT 6.8 10^3/uL (4.0-10.8)
[2022-02-16 14:30] LABS: PLATELET ESTIMATE ADEQUATE
[2022-02-16 14:40] LABS: INR 1.15 (0.83-1.09); PROTHROMBIN TIME (PATIENT) 13.3 SEC (9.7-13.0)
[2022-02-16 14:42] LABS: ACTIVATED PTT 34.1 SECONDS (25.2-36.5)
[2022-02-16 14:48] LABS: ALBUMIN 3.7 g/dl (3.4-5.0); BILIRUBIN,TOTAL 0.7 mg/dl (0.2-1); CALCIUM 8.7 mg/dl (8.5-10); CREATININE 2.2 mg/dl (0.55-1.3); TOT PROT 6.3 g/dl (6.4-8.2)
[2022-02-16 16:41] LABS: N-TERMINAL BNP 321.8 pg/ml (5-450)
[2022-02-16] MEDS ORDERED: ATORVASTATIN CA 20 MG TABLET (FP) PO SCH (22:00)
[2022-02-17 01:22] VITALS: RESP 18
[2022-02-17 09:10] LABS: ALBUMIN 3.3 g/dl (3.4-5.0); BILIRUBIN,TOTAL 0.9 mg/dl (0.2-1); CALCIUM 8.5 mg/dl (8.5-10); CREATININE 2.2 mg/dl (0.55-1.3); TOT PROT 5.7 g/dl (6.4-8.2)
[2022-02-17] MEDS: ASPIRIN COATED 81 MG TABLET.EC PO SCH (09:21)
[2022-02-17] MEDS: FUROSEMIDE 40 MG/4 ML INJECTABLE VIAL IVPUSH SCH (09:21)
[2022-02-17] MEDS: amLODIPine BESYLATE 5 MG TABLET (FP) PO SCH (09:21)
[2022-02-17 09:34] VITALS: BMI 28.6
[2022-02-17 12:02] LABS: BASO % 0.3 % (0-2.0); EOS % 4.1 % (0-4.5); HEMOGLOBIN 14.5 GM/dL (11.7-16.9); LYMPH % 26.4 % (8-40); MCH 31.6 pg (25.7-33.7); MCHC 32.8 g/dl (32.0-35.9); MEAN CELL VOLUME 96.2 fl (80-96); MEAN PLT VOLUME 8.7 fl (7.5-11.1); NEUT % 59.2 % (42.8-82.8); PLATELET COUNT 155 10^3/uL (134-434); RBC 4.58 M/mm3 (4.00-5.60); RDW 16.6 % (11.9-15.9); WHITE BLOOD COUNT 5.2 K/mm3 (4.0-10.0)
[2022-02-17 14:16] LABS: EPITHELIAL CELLS RARE /hpf
[2022-02-17] MEDS: HEPARIN NA (PORCINE) 5,000 UNITS/ML 1ML VIAL SQ SCH ×2 (15:01→21:28)
[2022-02-18] MEDS: HEPARIN NA (PORCINE) 5,000 UNITS/ML 1ML VIAL SQ SCH (06:21)
[2022-02-18 08:34] LABS: HEMATOCRIT 48.4 % (35.4-49); HEMOGLOBIN 16.5 G/dL (11.7-16.9); MCH 33.2 pg (25.7-33.7); MCHC 34.1 g/dl (32.0-35.9); MEAN CELL VOLUME 97.4 fl (80-96); MEAN PLT VOLUME 8.9 fl (7.5-11.1); RBC 4.97 10^6/uL (4.00-5.60); RDW 15.4 % (11.9-15.9); WHITE BLOOD COUNT 6.5 10^3/uL (4.0-10.8)
[2022-02-18 08:53] LABS: ALBUMIN 3.5 g/dl (3.4-5.0); CALCIUM 8.6 mg/dl (8.5-10); CREATININE 2.2 mg/dl (0.55-1.3); PHOSPHOROUS 3.2 mg/dl (2.5-4.9); TOT PROT 6.2 g/dl (6.4-8.2)
[2022-02-18 09:45] VITALS: BP 147/63; PULSE 87; TEMP 98.8
[2022-02-18] MEDS: ASPIRIN COATED 81 MG TABLET.EC PO SCH (09:52)
[2022-02-18] MEDS: amLODIPine BESYLATE 5 MG TABLET (FP) PO SCH (09:52)
[2022-02-18] MEDS: FUROSEMIDE 40 MG/4 ML INJECTABLE VIAL IVPUSH SCH (09:52)
[2022-02-18] MEDS ORDERED: metoPROLOL SUCCINATE 25 MG TAB.SR.24H (FP) PO SCH (10:00)
[2022-02-18 10:08] LABS: PLATELET ESTIMATE ADEQUATE
== END 2022-02-18 11:50 | disposition home or self-care (01) ==
LOC: FER 12:15 → FM/S 14:18 → INTOOBSV 14:18
PROVIDERS: ADMIT Internal Medicine; ATTEND Nurse Practitioner Family
PROC: 3E033GC Introduction of Other Therapeutic Substance into Peripheral Vein, Percutaneous Approach (ICD-10-PCS; principal; 2022-02-16)
PROC: 3E023GC Introduction of Other Therapeutic Substance into Muscle, Percutaneous Approach (ICD-10-PCS; 2022-02-16)
DX: I13.10 Hypertensive heart and chronic kidney disease without heart failure, with stage 1 through stage 4 chronic kidney disease, or unspecified chronic kidney disease (principal); I25.10 Atherosclerotic heart disease of native coronary artery without angina pectoris; I11.9 Hypertensive heart disease without heart failure; Z95.5 Presence of coronary angioplasty implant and graft; Z95.1 Presence of aortocoronary bypass graft; E78.5 Hyperlipidemia, unspecified; N18.9 Chronic kidney disease, unspecified; D64.9 Anemia, unspecified; Z91.018 Allergy to other foods; Z85.46 Personal history of malignant neoplasm of prostate
CPT/HCPCS: 36415; 71045-TC-FY; 76775-TC; 80053; 80061; 81003; 81015; 83036; 83735; 83880; 84100; 84443; 84484; 85025; 85027; 85610; 85730; 93005; 96372; 96374; 96376; 99285-25; C9803-CS; G0378; J1644; U0003; U0005

== ENCOUNTER 2022-05-08 04:13 | Day surgery (SDC) | payer OTHER ==
[2022-05-04 10:07] VITALS: BMI 29.1
[2022-05-08] MEDS ORDERED: ONDANSETRON 4 MG/2 ML VIAL ONE (11:39)
[2022-05-08] MEDS ORDERED: ceFAZolin SODIUM 1 GM VIAL IVPB ONE (11:47)
[2022-05-08 13:22] VITALS: BP 135/88; PULSE 76; RESP 16; TEMP 98.8
== END 2022-05-08 12:55 | disposition home or self-care (01) ==
LOC: JASU-SURG 04:13
PROVIDERS: ATTEND Urology
PROC: 0TF3XZZ Fragmentation in Right Kidney Pelvis, External Approach (ICD-10-PCS; principal; 2022-05-08 11:15)
DX: N20.0 Calculus of kidney (principal)

== ENCOUNTER 2022-07-10 04:03 | Day surgery (SDC) | payer OTHER ==
[2022-07-05 16:15] VITALS: BMI 27.6
[2022-07-10] MEDS ORDERED: ETOMIDATE 20 MG/10 ML VIAL IVPUSH ONE (12:08)
[2022-07-10] MEDS ORDERED: PROPOFOL 20 ML ONE (12:08)
[2022-07-10] MEDS ORDERED: ceFAZolin SODIUM 1 GM VIAL IVPB ONE (12:45)
[2022-07-10] MEDS ORDERED: METHYLENE BLUE 50 MG/10 ML AMPUL ONE (12:47)
[2022-07-10] MEDS ORDERED: ONDANSETRON 4 MG/2 ML VIAL ONE (13:14)
[2022-07-10] MEDS ORDERED: ACETAMINOPHEN INJECTION 100 ML IVPB ONE (13:33)
[2022-07-10] MEDS ORDERED: oxyCODONE HCL 5 MG TABLET PO PRN (13:39)
[2022-07-10] MEDS ORDERED: ONDANSETRON 4 MG/2 ML VIAL IVPUSH PRN (13:39)
[2022-07-10] MEDS ORDERED: LACTATED RINGERS SOLUTION 1,000 ML IV SCH (13:45)
[2022-07-10 17:11] VITALS: RESP 18; TEMP 97.2
[2022-07-10 17:17] VITALS: BP 144/67; PULSE 62
== END 2022-07-10 15:55 | disposition home or self-care (01) ==
LOC: JASU-SURG 04:03
PROVIDERS: ATTEND Urology
PROC: 0TBB8ZZ Excision of Bladder, Via Natural or Artificial Opening Endoscopic (ICD-10-PCS; principal; 2022-07-10 10:00)
DX: N13.30 Unspecified hydronephrosis (principal); N32.9 Bladder disorder, unspecified
CPT/HCPCS: 76000-TC-FY; 88305-TC; 94760; C1758; Q9968